=== PATIENT | female | born 1980 | race Caucasian/White ===

== ENCOUNTER 2016-07-27 08:18 | Emergency (ER) | payer SELFPAY ==
[~2016-07-27] VITALS: Ht 165.1 cm; Wt 61.2 kg
[~2016-07-27 08:18] MED LIST: AC325T PO
[2016-07-27] MEDS ORDERED: NS IV 1000 ML 1,000 ML IV ONE (08:24)
[2016-07-27] MEDS ORDERED: ONDANSETRON 4 MG/2 ML (SDV) Z0FRAN IVP ONE (08:30)
[2016-07-27 08:37] LABS: BASOPHILS # (AUTO) 0.1 10^3/uL (0.0-0.1); BASOPHILS % (AUTO) 1 % (0-10); EOSINOPHILS # (AUTO) 0.1 10^3/uL (0.0-0.3); EOSINOPHILS % (AUTO) 1 % (0-10); LYMPHOCYTES # (AUTO) 2.5 X 10^3 (1.0-4.0); LYMPHOCYTES % (AUTO) 31 % (12-44); MEAN CORPUSCULAR HEMOGLOBIN 30 PG (25-34); MEAN CORPUSCULAR HGB CONC 34 G/DL (32-36); MEAN CORPUSCULAR VOLUME 88 FL (80-99); MEAN PLATELET VOLUME 9.5 FL (7.4-10.4); MONOCYTES # (AUTO) 1.2 X 10^3 (0.0-1.0); MONOCYTES % (AUTO) 15 % (0-12); NEUTROPHILS # (AUTO) 4.3 X 10^3 (1.8-7.8); NEUTROPHILS % (AUTO) 53 % (42-75); PLATELET COUNT 299 10^3/uL (130-400); RED BLOOD COUNT 4.89 10^6/uL (4.35-5.85); RED CELL DISTRIBUTION WIDTH 12.3 % (10.0-14.5); WHITE BLOOD COUNT 8.1 10^3/uL (4.3-11.0)
[2016-07-27 08:38] LABS: BILIRUBIN,URINE NEGATIVE (NEGATIVE); KETONES,URINE 1+ (NEGATIVE); LEUKOCYTE ESTERASE ,URINE 1+ (NEGATIVE); NITRITE,URINE NEGATIVE (NEGATIVE); PH,URINE 5 (5-9); PROTEIN,URINE 2+ (NEGATIVE); UROBILINOGEN,URINE NORMAL (NORMAL)
[2016-07-27 08:50] LABS: WBC,URINE 0-2 /HPF
--- NOTE | 2016-07-27 08:56 | Diagnostic Imaging Report ---
INDICATION: Patient is uncooperative and does not verbalize. FINDINGS: Frontal view of the chest demonstrate the lungs to be clear. The heart, mediastinum, pulmonary vascularity and visualized bony thorax are normal. IMPRESSION: Normal chest. Dictated by: Dictated on workstation # [id number]
[2016-07-27 08:58] LABS: ALANINE AMINOTRANSFERASE 18 U/L (0-55); ALBUMIN 4.6 G/DL (3.2-4.5); ANION GAP 11 MMOL/L (5-14); ASPARTATE AMINO TRANSFERASE 20 U/L (5-34); BILIRUBIN,TOTAL 0.5 MG/DL (0.1-1.0); BLOOD UREA NITROGEN 13 MG/DL (7-18); BUN/CREATININE RATIO 15 (0-20); CARBON DIOXIDE 22 MMOL/L (21-32); CHLORIDE 105 MMOL/L (98-107); CREATININE SERUM 0.87 MG/DL (0.60-1.30); GFR ESTIMATED > 60; GLUCOSE 97 MG/DL (70-105); MAGNESIUM 2.1 MG/DL (1.8-2.4); POTASSIUM 3.6 MMOL/L (3.6-5.0); SALICYLATE < 5.0 MG/DL (5.0-20.0); SODIUM 138 MMOL/L (135-145); TOTAL PROTEIN 7.2 G/DL (6.4-8.2)
[2016-07-27 09:01] LABS: ACETAMINOPHEN < 10 UG/ML (10-30); ALCOHOL < 10 MG/DL (<10)
--- NOTE | 2016-07-27 09:14 | ED Neurological Problem ---
General Chief Complaint: Altered Mental Status Stated Complaint: PYSCH Source: patient, EMS, old records Exam Limitations: intoxication (unknown substances) History of Present Illness Time seen by provider: 08:19 Initial Comments This Omaira Antonio patient presents to the emergency room via EMS. [place] up near [place]. Bystanders were concerned that she may get hit by a car. She would not reveal her name to police or EMS. She was hallucinating and believed that there were snakes all over the ground. She was talking to her bottle of soda. In route, she became less responsive and had some gasping breaths and intermittent decreased responsiveness. She stopped talking for EMS. Vital signs remained stable and airway remained patent. She will not provide any information to ER staff upon arrival. Allergies and Home Medications Allergies Coded Allergies: NKANo Known Allergies (Unverified Allergy, Mild, 07/22/08) Home Medications No Active Prescriptions or Reported Meds Constitutional: see HPI Eyes: No Symptoms Reported Ears, Nose, Mouth, Throat: no symptoms reported Respiratory: see HPI Cardiovascular: other (tachycardia) Gastrointestinal: no symptoms reported Genitourinary: no symptoms reported : No Musculoskeletal: no symptoms reported Skin: no symptoms reported Psychiatric/Neurological: See HPI Endocrine: No Symptoms Reported Hematologic/Lymphatic: No Symptoms Reported Past Mtpsraa-Etbscb-Hvbxhs Hx Patient Social History Recreational Drug Use: Yes (methamphetamines, marijuana, ecstasy) Smoking Status: Current Everyday Smoker Surgeries HX Surgeries: Yes Surgeries: Orthopedic (benign tumor removed from left foot), Tubal Ligation Respiratory Hx Respiratory Disorders: No Cardiovascular Hx Cardiac Disorders: No Neurological Hx Neurological Disorders: No Reproductive System : No Sexually Transmitted Disease: Yes (Trichomonas) Genitourinary Hx Genitourinary Disorders: No Gastrointestinal Hx Gastrointestinal Disorders: No Musculoskeletal Hx Musculoskeletal Disorders: No Endocrine Hx Endocrine Disorders: No HEENT HX ENT Disorders: No Cancer Hx Cancer: No Psychosocial Hx Psychiatric Problems: Yes (polysubstance abuse) Family Medical History Significant Family History: Heart Disease Physical Exam Vital Signs Vital Sign - Last 12Hours 07/27/16 08:18 Pulse 104 Resp 18 B/P (MAP) 140/106 Pulse Ox 100 O2 Delivery Room Air Capillary Refill : General Appearance: WD/WN, mild distress HEENT: PERRL/EOMI, normal ENT inspection, pharynx normal Neck: normal inspection Respiratory: lungs clear, normal breath sounds, no respiratory distress, no accessory muscle use, other (positive and her breathing followed by gasps) Cardiovascular: no edema, no murmur, tachycardia (regular) Gastrointestinal: normal bowel sounds, non tender, soft Extremities: normal inspection, no pedal edema Neurologic/Psychiatric: transit man II-XII nml as tested, normal mood/affect, other ( patient is globally weak with decreased responsiveness. She does follow some commands. Level of alertness and functionality improving with time.) Crainal Nerves: abnormal speech Coordination/Gait: normal gait (prior to discharge) Skin: normal color, warm/dry Progress/Results/Core Measures Results/Orders Lab Results Laboratory Tests Test 07/27/16 08:29 07/27/16 08:33 Range/Units White Blood Count 8.1 4.3-11.0 10^3/uL Red Blood Count 4.89 4.35-5.85 10^6/uL Hemoglobin 14.6 11.5-16.0 G/DL Hematocrit 43 35-52 % Mean Corpuscular Volume 88 80-99 FL Mean Corpuscular Hemoglobin 30 25-34 PG Mean Corpuscular Hemoglobin Concent 34 32-36 G/DL Red Cell Distribution Width 12.3 10.0-14.5 % Platelet Count 299 130-400 10^3/uL Mean Platelet Volume 9.5 7.4-10.4 FL Neutrophils (%) (Auto) 53 42-75 % Lymphocytes (%) (Auto) 31 12-44 % Monocytes (%) (Auto) 15 H 0-12 % Eosinophils (%) (Auto) 1 0-10 % Basophils (%) (Auto) 1 0-10 % Neutrophils # (Auto) 4.3 1.8-7.8 X 10^3 Lymphocytes # (Auto) 2.5 1.0-4.0 X 10^3 Monocytes # (Auto) 1.2 H 0.0-1.0 X 10^3 Eosinophils # (Auto) 0.1 0.0-0.3 10^3/uL Basophils # (Auto) 0.1 0.0-0.1 10^3/uL Urine Color YELLOW Urine Clarity SLIGHTLY CLOUDY Urine pH 5 5-9 Urine Specific [place] 1.025 H 1.016-1.022 Urine Protein 2+ H NEGATIVE Urine Glucose (UA) NEGATIVE NEGATIVE Urine Ketones 1+ H NEGATIVE Urine Nitrite NEGATIVE NEGATIVE Urine Bilirubin NEGATIVE NEGATIVE Urine Urobilinogen NORMAL NORMAL MG/DL Urine Leukocyte Esterase 1+ H NEGATIVE Urine RBC (Auto) NEGATIVE NEGATIVE Urine RBC NONE /HPF Urine WBC 0-2 /HPF Urine Squamous Epithelial Cells 5-10 /HPF Urine Crystals NONE /LPF Urine Bacteria NEGATIVE /HPF Urine Casts NONE /LPF Urine Mucus SMALL H /LPF Urine Culture Indicated NO Sodium Level 138 135-145 MMOL/L Potassium Level 3.6 3.6-5.0 MMOL/L Chloride Level 105 98-107 MMOL/L Carbon Dioxide Level 22 21-32 MMOL/L Anion Gap 11 5-14 MMOL/L Blood Urea Nitrogen 13 7-18 MG/DL Creatinine 0.87 0.60-1.30 MG/DL Estimat Glomerular Filtration Rate > 60 BUN/Creatinine Ratio 15 0-20 Glucose Level 97 70-105 MG/DL Calcium Level 10.0 8.5-10.1 MG/DL Magnesium Level 2.1 1.8-2.4 MG/DL Total Bilirubin 0.5 0.1-1.0 MG/DL Aspartate Amino Transf (AST/SGOT) 20 5-34 U/L Alanine Aminotransferase (ALT/SGPT) 18 0-55 U/L Alkaline Phosphatase 64 40-136 U/L Total Protein 7.2 6.4-8.2 G/DL Albumin 4.6 H 3.2-4.5 G/DL TSH [place] Testing 1.11 0.35-4.94 UIU/ML Serum Test, Qualitative NEGATIVE NEGATIVE Salicylates Level < 5.0 L 5.0-20.0 MG/DL Urine Opiates Screen NEGATIVE NEGATIVE Urine Oxycodone Screen NEGATIVE NEGATIVE Urine Methadone Screen NEGATIVE NEGATIVE Urine Propoxyphene Screen NEGATIVE NEGATIVE Acetaminophen Level < 10 L 10-30 UG/ML Urine Barbiturates Screen NEGATIVE NEGATIVE Ur Tricyclic Antidepressants Screen NEGATIVE NEGATIVE Urine Phencyclidine Screen NEGATIVE NEGATIVE Urine Amphetamines Screen POSITIVE H NEGATIVE Urine Methamphetamines Screen POSITIVE H NEGATIVE Urine Benzodiazepines Screen POSITIVE H NEGATIVE Urine Cocaine Screen NEGATIVE NEGATIVE Urine Cannabinoids Screen POSITIVE H NEGATIVE Serum Alcohol < 10 <10 MG/DL Glucometer 95 70-110 MG/DL My Orders Orders - BALWINDER MADDOX MD Acetaminophen (07/27/16 08:24) Alcohol (07/27/16 08:24) Cbc With Automated Diff (07/27/16 08:24) Comprehensive Metabolic Panel (07/27/16 08:24) Drug Screen Stat (Urine) (07/27/16 08:24) Hcg,Qualitative Serum (07/27/16 08:24) Magnesium (07/27/16 08:24) Salicylate (07/27/16 08:24) Thyroid Analyzer (07/27/16 08:24) Ua Culture If Indicated (07/27/16 08:24) Chest 1 View, Ap/Pa Only (07/27/16 08:24) Saline Lock/Iv-Start (07/27/16 08:24) Ns Iv 1000 Ml (Sodium Chloride 0.9%) (07/27/16 08:24) Ondansetron Injection (Zofran Injectio (07/27/16 08:30) Accucheck Stat ONCE (07/27/16 08:31) Ekg Tracing (07/27/16 08:31) Monitor-Rhythm Ecg Trace Only (07/27/16 08:31) Medications Given in ED Current Medications Medications Dose Ordered Sig/Julissa Route Start Time Stop Time Status Last Admin Dose Admin Ondansetron HCl 4 mg ONCE ONCE IVP 07/27/16 08:30 07/27/16 08:31 DC 07/27/16 08:31 4 MG Sodium Chloride 1,000 ml @ 0 mls/hr Q0M ONCE IV 07/27/16 08:24 07/27/16 08:27 DC 07/27/16 08:31 1,000 MLS/HR Vital Signs/I&O Vital Sign - Last 12Hours 07/27/16 08:18 Pulse 104 Resp 18 B/P (MAP) 140/106 Pulse Ox 100 O2 Delivery Room Air Point of Care Testing Finger Stick Blood Glucose: 95 Progress Note #1: Time: 09:09 Progress Note Patient is receiving IV fluids. She is becoming more alert and is now threatening to physically harm staff and removing her monitor stickers. She states "I'm and I'm going to will". She has been lunging at this provider and nursing staff stating "I'm going to hurt this bitch". [place] police have been summoned. Stanley catheter was removed at her demand. She refuses to state her name. She responds to any statement made by staff "that's a lie". She is still not safe for discharge. Labs have been reviewed and are unremarkable except for the toxicology screen. Patient tested positive for marijuana, amphetamines, methamphetamines, and benzodiazepines. Progress Note #2: Time: 09:37 Progress Note Patient's vitals are stable. Mentation has improved. She is able to ambulate safely and independently. She still refuses to answer questions about her name or where she lives. [place] police are now present. Patient was positively identified as Kaylie Dawson. She will be discharged into police custody as soon as they are ready. ECG Initial ECG Impression Date: Jul 27, 2016 Initial ECG Impression Time: 08:37 Initial ECG Rate: 99 Initial ECG Rhythm: Normal Sinus Initial ECG Intervals: Normal Initial ECG Impression: Normal Comment Normal sinus rhythm with no ST elevation or depression. No abnormal intervals or axis deviation. Diagnostic Imaging Diagonstic Imaging: Xray Plain Films/CT/US/NM/MRI: chest Comments NAME: OMAIRA ANTONIO MED REC#: [id number] PT STATUS: REG ER : 1980 PHYSICIAN: BALWINDER MADDOX MD ADMIT DATE: 07/27/16/ER Draft Date of Exam:07/27/16 CHEST 1 VIEW, AP/PA ONLY INDICATION: Patient is uncooperative and does not verbalize. FINDINGS: Frontal view of the chest demonstrate the lungs to be clear. The heart, mediastinum, pulmonary vascularity and visualized bony thorax are normal. IMPRESSION: Normal chest. Dictated on workstation # [id number] Dict: 07/27/16 0854 Trans: 07/27/16 0855 [facility] [id number] Interpreted by: MARCELA AVILES MD Departure Impression Impression: Primary Impression: Altered mental status Qualified Codes: R41.82 - Altered mental status, unspecified Additional Impressions: Hallucinations Polysubstance abuse Threatening to others Sinus tachycardia Disposition: Condition: Improved Departure-Patient Inst. Decision time for Depature: 09:30 Patient Instructions: Drug Abuse Treatment, Methamphetamine Add. Discharge Instructions: You are medically cleared from your ER visit. Seek assistance with substance abuse treatment with either the [facility] clinic or [facility]. Return to care as needed. All discharge instructions reviewed with patient and/or family. Voiced understanding. Scripts No Active Prescriptions or Reported Meds BALWINDER MADDOX MD Jul 27, 2016 09:14
[2016-07-27 09:18] LABS: HEMOLYSIS NN 8 (0); ICTERUS NN 0.4 (0); LIPEMIA NN -1 (0)
[2016-07-27 09:51] VITALS: BP 147/96
== END 2016-07-27 09:51 ==
LOC: ER 08:19 → MERGE 08:19 → EDBD 08:19 → ER 09:51
DX: R41.82 Altered mental status, unspecified (principal); F91.8 Other conduct disorders; R00.0 Tachycardia, unspecified; R44.1 Visual hallucinations; F15.10 Other stimulant abuse, uncomplicated; F12.10 Cannabis abuse, uncomplicated; F16.10 Hallucinogen abuse, uncomplicated; F17.200 Nicotine dependence, unspecified, uncomplicated
CPT/HCPCS: 36415; 71010; 80053; 80306; 80320; 80329; 81000; 82962; 83735; 84443; 84703; 85025; 93005; 93041

== ENCOUNTER 2019-03-09 23:12 | Emergency (ER) | payer SELFPAY ==
[~2019-03-09] VITALS: Ht 157 cm; Wt 62.7 kg
[2019-03-10 01:02] LABS: AMPHETAMINE SCREEN, URINE POSITIVE (NEGATIVE); BARBITURATE SCREEN URINE NEGATIVE (NEGATIVE); BENZODIAZEPINES SCREEN URINE NEGATIVE (NEGATIVE); CANNABINOID SCREEN, URINE POSITIVE (NEGATIVE); COCAINE SCREEN URINE NEGATIVE (NEGATIVE); METHADONE STAT NEGATIVE (NEGATIVE); METHAMPHETAMINE SCREEN URINE S POSITIVE (NEGATIVE); OPIATE SCREEN URINE NEGATIVE (NEGATIVE); OXYCODONE STAT NEGATIVE (NEGATIVE); PROPOXYPHENE STAT NEGATIVE (NEGATIVE); TRICYCLIC ANTIDEPRESSANTS SCRE NEGATIVE (NEGATIVE)
[2019-03-10] MEDS ORDERED: RX-NAPROXEN (NAPROSYN) 250 MG TAB PPK#4 PO STA (01:29)
[2019-03-10] MEDS ORDERED: MELO15TA14 PO (01:35)
--- NOTE | 2019-03-10 01:35 | ED Lower Extremity ---
General Chief Complaint: Lower Extremity Stated Complaint: RT KNEE PAIN Nursing Triage Note: Pt ambulates to rm 6 with c/o "fluid on right knee" x 2wks. Pt states rt knee is swollen, tight, and painful. PT reports taking ibuprofen for the pain. Nursing Sepsis Screen: No Definite Risk Source: patient, other (MALE S.O. IS JOSEPH IGLESIAS, WHO TRIES TO DO ALL TALKING FOR PT ) Allergies and Home Medications Allergies Coded Allergies: NKANo Known Allergies (Unverified Allergy, Mild, 07/22/08) Home Medications No Active Prescriptions or Reported Meds Past Roghxfz-Ypvsvb-Kykwmg Hx Patient Social History Alcohol Use: Rarely Uses Recreational Drug Use: No Smoking Status: Current Everyday Smoker Type Used: Cigarettes 2nd Hand Smoke Exposure: Yes Recent Foreign Travel: No Contact w/Someone Who Travel: No Recent Infectious Disease Expo: No Recent Hopitalizations: No Physical Abuse: No Sexual Abuse: No Mistreated: No Fear: No Seasonal Allergies Seasonal Allergies: No Past Medical History Surgeries: Yes Orthopedic, Tubal Ligation Respiratory: No (UNKNOWN) Cardiac: No Neurological: No Sexually Transmitted Disease: Yes (Trichomonas) Gastrointestinal: No Musculoskeletal: No Endocrine: No Cancer: No Psychosocial: No Family Medical History Heart Disease Physical Exam Vital Signs Vital Signs - First Documented 03/10/19 00:29 Temp 36.8 Pulse 84 Resp 20 B/P (MAP) 130/94 (106) Pulse Ox 100 O2 Delivery Room Air Capillary Refill : Less Than 3 Seconds Height, Weight, BMI Height: 5'2" Weight: 120lbs. oz. 54.380527nc; 25.00 BMI Method:Stated Progress/Results/Core Measures Results/Orders Lab Results Laboratory Tests Test 03/10/19 00:40 Range/Units Urine Opiates Screen NEGATIVE NEGATIVE Urine Oxycodone Screen NEGATIVE NEGATIVE Urine Methadone Screen NEGATIVE NEGATIVE Urine Propoxyphene Screen NEGATIVE NEGATIVE Urine Barbiturates Screen NEGATIVE NEGATIVE Ur Tricyclic Antidepressants Screen NEGATIVE NEGATIVE Urine Phencyclidine Screen NEGATIVE NEGATIVE Urine Amphetamines Screen POSITIVE H NEGATIVE Urine Methamphetamines Screen POSITIVE H NEGATIVE Urine Benzodiazepines Screen NEGATIVE NEGATIVE Urine Cocaine Screen NEGATIVE NEGATIVE Urine Cannabinoids Screen POSITIVE H NEGATIVE My Orders Orders - JACKIE KOROMA DO Urine Bedside (03/10/19 00:37) Drug Screen Stat (Urine) (03/10/19 00:37) Knee, Right, 4 Views Or > (03/10/19 00:37) Edwin Bandage (03/10/19 01:29) Knee Immobilizer (03/10/19 01:29) Rx-Naproxen (Rx-Naprosyn) (03/10/19 01:29) Vital Signs/I&O 03/10/19 00:29 Temp 36.8 Pulse 84 Resp 20 B/P (MAP) 130/94 (106) Pulse Ox 100 O2 Delivery Room Air Blood Pressure Mean: 106 Departure Impression Primary Impression: Pain and swelling of right knee Disposition: HOME, SELF-CARE Condition: Stable Departure-Patient Inst. Referrals: NO,LOCAL PHYSICIAN (PCP) Primary Care Physician MARIA R PENA MD Patient Instructions: How to Use an Elastic Bandage, Knee Immobilizer (DC), Knee Pain (DC) Add. Discharge Instructions: EDWIN WRAP AND KNEE IMMOBILIZER AT ALL TIMES ICE TO AREA AT 20 MINUTE INTERVALS ELEVATE RIGHT LEG MUCH POSSIBLE FOLLOW UP WITH DR. PENA OR ORTHOPEDIC SURGEON OF CHOICE NEXT WEEK FOR FURTHER CARE All discharge instructions reviewed with patient and/or family. Voiced understanding. Scripts Meloxicam (Mobic) 15 Mg Tablet 15 MG PO DAILY, #10 TAB Prov: JACKIE KOROMA DO 03/10/19 JACKIE KOROMA DO Mar 10, 2019 01:35
[2019-03-10 02:04] VITALS: BP 130/94
--- NOTE | 2019-03-10 07:02 | Diagnostic Imaging Report ---
HISTORY: Right knee pain COMPARISON: None FINDINGS: 4 views of the right knee performed. No acute fracture or dislocation is seen. Alignment appears normal. Joint spaces are preserved. There is no joint effusion. IMPRESSION: 1. No acute osseous abnormality seen in the right knee. Dictated by: Dictated on workstation # [id number]
== END 2019-03-10 02:05 | disposition home or self-care (01) ==
LOC: EDUNIT# 23:12 → ER 23:14
DX: M25.461 Effusion, right knee (principal); M25.561 Pain in right knee; F17.210 Nicotine dependence, cigarettes, uncomplicated; Z98.51 Tubal ligation status; Z82.49 Family history of ischemic heart disease and other diseases of the circulatory system
CPT/HCPCS: 73564; 80306; 84703

== ENCOUNTER 2019-06-19 04:00 | Emergency (ER) | payer SELFPAY ==
[~2019-06-19] VITALS: Ht 157 cm; Wt 62.6 kg
[~2019-06-19 04:00] MED LIST changes: +MELO15TA14 PO
--- NOTE | 2019-06-19 05:13 | ED General ---
General Chief Complaint: General Problems/Pain Stated Complaint: MIGRAINE Nursing Triage Note: Pt ambulates to RM 6 with c/o intermittent migraines x 2 weeks. Pt states she's been taking tylenol and mydol with minimal relief. Nursing Sepsis Screen: No Definite Risk Source of Information: Patient, Old Records History of Present Illness Date Seen by Provider: June 19, 2019 Time Seen by Provider: 05:40 Initial Comments PT ARRIVES VIA POV FROM HOME--HER S.O./JOSEPH IGLESIAS, BROUGHT HER HERE. C/O HEADACHES OFF AND ON FOR 2 WEEKS-MINIMAL RELIEF WITH TYLENOL AND MIDOL/LUBA PRIN--TOOK ONE OF EACH YESTERDAY AFTERNOON. NO VISION CHANGES NO PHOTOPHOBIA NO NAUSEA/VOMITING NO DIZZINESS NO PARESTHESIAS OR MOTOR DEFICITS SYMPTOMS NO DIFFERENT TONIGHT HAS NOT SOUGHT CARE UNTIL TONIGHT. LAST USED DRUGS TODAY--""CBD OIL OR K2 OR MARIJUANA" PER PT PCP: BASIL Allergies and Home Medications Allergies Coded Allergies: NKANo Known Allergies (Verified Allergy, Mild, 06/19/19) Home Medications Meloxicam 15 Mg Tablet, 15 MG PO DAILY Prescribed by: JACKIE KOROMA on 03/10/19 0135 Patient Home Medication List Home Medication List Reviewed: Yes Review of Systems Review of Systems Constitutional: no symptoms reported EENTM: no symptoms reported Respiratory: no symptoms reported Cardiovascular: no symptoms reported Gastrointestinal: no symptoms reported Genitourinary: no symptoms reported Musculoskeletal: no symptoms reported Skin: no symptoms reported Psychiatric/Neurological: See HPI Hematologic/Lymphatic: No Symptoms Reported Immunological/Allergic: no symptoms reported Past Mdtgtyq-Jeohtd-Lzbfwg Hx Past Med/Social Hx: Reviewed and Corrections made Patient Social History Alcohol Use: Rarely Uses Recreational Drug Use: Yes (EXTENSIVE HX OF DRUG ABUSE, INCLUDING IV DRUGS- METH,AMPHET,MDMA,BZO,THC,K2) Drug of Choice: EXTENSIVE HX OF IV DRUGS INCLUDING METH,AMPHET,MDMA/ECSTASY,BZO,THC,K2 Smoking Status: Current Everyday Smoker (1 PPD) Type Used: Cigarettes (1 PPD) 2nd Hand Smoke Exposure: Yes Recent Foreign Travel: No Contact w/Someone Who Travel: No Recent Infectious Disease Expo: No Recent Hopitalizations: No Physical Abuse: No Sexual Abuse: No Mistreated: No Fear: No Seasonal Allergies Seasonal Allergies: No Past Medical History Surgeries: Yes Orthopedic, Tubal Ligation Respiratory: No Cardiac: No Neurological: Yes 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 oz. 54.539842pn; 25.00 BMI Method:Stated General Appearance: No Apparent Distress, WD/WN, Other (UNKMEPT, DOES NOT APPEAR TO BE ILL OR IN ANY DISCOMFORT OR DISTRESS WHATSOEVER. REEKS OF CIGARETTES. TALKING ON PHONE THROUGHOUT ENTIRE ER STAY--REFUSES TO GET OFF PHONE) HEENT: PERRL/EOMI, TMs Normal, Pharynx Normal; No Photophobia Neck: Full Range of Motion, Normal Inspection, Non Tender, Supple Respiratory: Normal Breath Sounds, No Accessory Muscle Use Cardiovascular: No Edema, No JVD, No Murmur, Normal Peripheral Pulses, Tachycardia (100-110'S) Gastrointestinal: Soft Back: No CVA Tenderness Extremity: Normal Range of Motion, No Pedal Edema Neurologic/Psychiatric: Alert, Oriented x3, No Motor/Sensory Deficits, corner cutter II- XII Norm as Tested Skin: Normal Color, Warm/Dry Progress/Results/Core Measures Suspected Sepsis Recent Fever Within 48 Hours: No Infection Criteria Present: None New/Unexplained Altered Menta: No Sepsis Screen: No Definite Risk SIRS Temperature: Pulse: 117 Respiratory Rate: 20 Blood Pressure 156 /96 Mean: 116 Results/Orders Lab Results Laboratory Tests Test 06/19/19 04:53 Range/Units Urine Color YELLOW Urine Clarity CLEAR Urine pH 5.5 5-9 Urine Specific [place] >=1.030 1.016-1.022 Urine Protein NEGATIVE NEGATIVE Urine Glucose (UA) NEGATIVE NEGATIVE Urine Ketones NEGATIVE NEGATIVE Urine Nitrite NEGATIVE NEGATIVE Urine Bilirubin NEGATIVE NEGATIVE Urine Urobilinogen 0.2 < = 1.0 MG/DL Urine Leukocyte Esterase NEGATIVE NEGATIVE Urine RBC (Auto) 2+ H NEGATIVE Urine RBC 2-5 H /HPF Urine WBC NONE /HPF Urine Squamous Epithelial Cells 5-10 /HPF Urine Crystals NONE /LPF Urine Bacteria NEGATIVE /HPF Urine Casts NONE /LPF Urine Mucus LARGE H /LPF Urine Culture Indicated NO Urine Opiates Screen NEGATIVE NEGATIVE Urine Oxycodone Screen NEGATIVE NEGATIVE Urine Methadone Screen NEGATIVE NEGATIVE Urine Propoxyphene Screen NEGATIVE NEGATIVE Urine Barbiturates Screen NEGATIVE NEGATIVE Ur Tricyclic Antidepressants Screen NEGATIVE NEGATIVE Urine Phencyclidine Screen NEGATIVE NEGATIVE Urine Amphetamines Screen POSITIVE H NEGATIVE Urine Methamphetamines Screen POSITIVE H NEGATIVE Urine Benzodiazepines Screen POSITIVE H NEGATIVE Urine Cocaine Screen NEGATIVE NEGATIVE Urine Cannabinoids Screen POSITIVE H NEGATIVE My Orders Orders - JACKIE KOROMA DO Urine Bedside (06/19/19 04:49) Drug Screen Stat (Urine) (06/19/19 04:49) Ua Culture If Indicated (06/19/19 04:49) Vital Signs/I&O 06/19/19 04:13 Temp 36.9 Pulse 117 Resp 20 B/P (MAP) 156/96 (116) O2 Delivery Room Air Capillary Refill : Less Than 3 Seconds Blood Pressure Mean: 116 Progress Note : Progress Note 0420--ATTEMPTED TO INTERVIEW AND EXAMINE PT--SHE REFUSES TO GET OFF HER PHONE/TALKING ON PHONE, AFTER ASKING HER TO PUT HER PHONE AWAY 0445--PT STILL ON PHONE AND REFUSES TO GET OFF PHONE 0505--PT CONTINUES TO REFUSE TO GET OFF THE PHONE. 0540--PT HAS RIPPED OFF ALL MONITOR LEADS, AND IS WANTING TO LEAVE ( STILL TALKING ON PHONE ) --STATING THAT SHE IS "TIRED OF WAITING" EXPLAINED TO PT THAT ALL OF HER SYMPTOMS COULD BE ATTRIBUTED TO HER DRUG USE AND ADVISED HER OF RISKS OF CONTINUED USE AND ADVISED HER TO STOP Departure Impression Primary Impression: Polysubstance abuse Additional Impression: Illicit drug use Disposition: HOME, SELF-CARE Condition: Stable Departure-Patient Inst. Referrals: [facility] (PCP/Family) Primary Care Physician Patient Instructions: Drug Abuse Treatment, Drug Abuse and Drug Addiction (DC), Methamphetamine, Polysubstance Abuse (DC) Add. Discharge Instructions: STOP USING DRUGS!!!! TYLENOL 1 GRAM / MOTRIN 600 MG 4 TIMES A DAY FOR PAIN LOTS OF CLEAR LIQUIDS--WATER, BROTH, JELLO, GATORADE FOLLOW UP WITH [facility] THIS WEEK FOR FURTHER CARE All discharge instructions reviewed with patient and/or family. Voiced understanding. JACKIE KOROMA DO June 19, 2019 05:13
[2019-06-19 05:16] LABS: BILIRUBIN,URINE NEGATIVE (NEGATIVE); CLARITY,URINE CLEAR; COLOR,URINE YELLOW; GLUCOSE, URINE (UA) NEGATIVE (NEGATIVE); KETONES,URINE NEGATIVE (NEGATIVE); LEUKOCYTE ESTERASE ,URINE NEGATIVE (NEGATIVE); NITRITE,URINE NEGATIVE (NEGATIVE); PH,URINE 5.5 (5-9); PROTEIN,URINE NEGATIVE (NEGATIVE)
[2019-06-19 05:26] LABS: AMPHETAMINE SCREEN, URINE POSITIVE (NEGATIVE); BARBITURATE SCREEN URINE NEGATIVE (NEGATIVE); BENZODIAZEPINES SCREEN URINE POSITIVE (NEGATIVE); CANNABINOID SCREEN, URINE POSITIVE (NEGATIVE); COCAINE SCREEN URINE NEGATIVE (NEGATIVE); METHADONE STAT NEGATIVE (NEGATIVE); METHAMPHETAMINE SCREEN URINE S POSITIVE (NEGATIVE); OPIATE SCREEN URINE NEGATIVE (NEGATIVE); OXYCODONE STAT NEGATIVE (NEGATIVE); PROPOXYPHENE STAT NEGATIVE (NEGATIVE); TRICYCLIC ANTIDEPRESSANTS SCRE NEGATIVE (NEGATIVE)
[2019-06-19 05:27] LABS: BACTERIA,URINE NEGATIVE /HPF
[2019-06-19] MEDS ORDERED: KETOROLAC 60 MG/2 ML VIAL IM STA (05:44)
[2019-06-19] MEDS ORDERED: diphenhydrAMINE 50 MG/ML INJ (BENADRYL) IM ONE (05:45)
[2019-06-19 06:10] VITALS: BP 140/103
== END 2019-06-19 06:11 | disposition home or self-care (01) ==
LOC: EDUNIT# 04:00 → ER 04:04
DX: F12.10 Cannabis abuse, uncomplicated (principal); F15.10 Other stimulant abuse, uncomplicated; F13.10 Sedative, hypnotic or anxiolytic abuse, uncomplicated; F16.10 Hallucinogen abuse, uncomplicated; F17.210 Nicotine dependence, cigarettes, uncomplicated; Z82.49 Family history of ischemic heart disease and other diseases of the circulatory system
CPT/HCPCS: 80306; 81000; 84703; 99284

== ENCOUNTER 2019-07-15 04:38 | Emergency (ER) | payer SELFPAY ==
[~2019-07-15] VITALS: Ht 157.4 cm; Wt 63.5 kg
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
--- OUTSIDE RECORDS SUMMARY | 2019-07-15 04:45 | XMS REPORT ---
Author Author Anali GOFF Organization [employer] Address Unknown Phone Unavailable Care Team Providers Care Building Performance Specialist Name Role Phone MEG GOFF CP Unavailable Allergies No Known Allergies Problems Problem Type Condition Code Onset Dates Condition Statu s Problem Unspecified psychosis F29 Active Problem Hallucinations R44.3 Active Problem Unspecified episodic mood disorder F39 Active Problem Drug abuse and dependence F19.20 Ac tive Medications Medication Code System Code Instructions Start Date End Date Status Dosage Metronidazole [facility] [address]-30 500 MG Orally Twice a day Jan 14, 2015 Jan 21, 2015 1 tablet Results No Known Results Summary Purpose [employer] Submission
--- OUTSIDE RECORDS SUMMARY | 2019-07-15 04:45 | XMS REPORT ---
Author Author Anali HUERTAS Organization [facility] Address [address] [place] [address] Care Team Providers Care Edge Inker Heels Name Role Phone KATELYN HUERTAS Unavailable PROBLEMS Type Condition ICD9-CM Code SXM40-XH Code Onset Dates Condition S tatus SNOMED Code Problem Mood disorder F39 Active 206081 05 Problem Unspecified psychosis F29 Active 59103635 Problem Drug abuse and dependence F19.20 Acti ve 2254476 Problem Unspecified episodic mood disorder F39 Active 49405228 Problem Hallucinations R44.3 Active 25662 01 ALLERGIES Unknown Allergies SOCIAL HISTORY No smoking Hx information available PLAN OF CARE Activity Details Follow Up 1 Week Reason:Depression, an xiety VITAL SIGNS MEDICATIONS Unknown Medications RESULTS No Results PROCEDURES Procedure Date Ordered Related Diagnosis Body Site Psych diagnostic evaluation, new patient Feb 18, 2016 IMMUNIZATIONS No Known Immunizations
--- OUTSIDE RECORDS SUMMARY | 2019-07-15 04:45 | XMS REPORT | Continuity of Care Document ---
Author Organization Unknown Address Unknown Phone Unavailable Allergies Active Description Code Type Severity Reaction Onset Reported/Identified Relationship to Patient Clinical Status Yes ALLERGIES UNKNOWN DUE TO PATIENT INCAPAC ITATION UNKNOWN ALLERGIES UNKNOWN DU Yes NO KNOWN DRUG ALLERGIES UNKNOWN NO KNOWN DRUG ALLERG Yes No Known Drug Allergies [id number] Drug Allergy Unknown N/A 07/27/2016 Yes NKANo Known Allergies NKA Miscellaneous Allergy Mild N/A 06/19/2019 Medications Medication Packaging Start Date St op Date Route Dosage Sig CEFTRIAXONE INJ 1 GM (ROCEPHIN) GM 04/27/2017 04/27/2017 ONCE&1332 LACTATED RINGERS 1000CC IV BAG INJ ml 04/27/2017 04/27/2017 ONCE&1357 TETANUS,DIPTH,PERT ADULT INJ 0 (ADACEL SYRINGE) ml 04/27/2017 04/27/2017 ONCE&1435 Problems Date Dx Coded Attending Type Code Diagnosis Diagnosed By 04/03/2010 Ot 305.20 04/03/2010 Ot 401.9 04/03/2010 Ot 781.0 04/03/2010 Ot 784.59 08/12/2010 Ot 616.10 08/12/2010 Ot 789.04 09/05/2014 BALWINDER MADDOX MD Ot 131.09 UROGENITAL TRICHOMON NEC 09/05/2014 BALWINDER MADDOX MD Ot 276.8 HYPOPOTASSEMIA 09/05/2014 BALWINDER MADDOX MD Ot 305.20 CANNABIS ABUSE-UNSPEC 09/05/2014 BALWINDER MADDOX MD Ot 305.70 AMPHETAMINE ABUSE-UNSPEC 09/05/2014 BALWINDER MADDOX MD Ot 780.97 ALTERED MENTAL STATUS 07/27/2016 BALWINDER MADDOX MD Ot F12.10 CANNABIS ABUSE, UNCOMPLICATED 07/27/2016 BALWINDER MADDOX MD Ot F15.10 OTHER STIMULANT ABUSE, UNCOMPLICATED 07/27/2016 BRUEGGEMANN MD, BALWINDER T Ot F16.10 HALLUCINOGEN ABUSE, UNCOMPLICATED 07/27/2016 TAN WICK, BALWINDER T Ot F17.200 NICOTINE DEPENDENCE, UNSPECIFIED, UNCOMP 07/27/2016 TAN WICK, BALWINDER T Ot F91.8 OTHER CONDUCT DISORDERS 07/27/2016 TAN WICK, BALWINDER T Ot R00.0 TACHYCARDIA, UNSPECIFIED 07/27/2016 TAN WICK, BALWINDER T Ot R41.82 ALTERED MENTAL STATUS, UNSPECIFIED 07/27/2016 TAN WICK, BALWINDER T Ot R44.1 VISUAL HALLUCINATIONS 07/27/2016 TAN WICK, BALWINDER T Ot R46.4 SLOWNESS AND POOR RESPONSIVENESS 07/29/2016 TAN WICK, BALWINDER T Ot F12.10 CANNABIS ABUSE, UNCOMPLICATED 07/29/2016 TAN WICK, BALWINDER T Ot F15.10 OTHER STIMULANT ABUSE, UNCOMPLICATED 07/29/2016 TAN WICK, BALWINDER T Ot F16.10 HALLUCINOGEN ABUSE, UNCOMPLICATED 07/29/2016 TAN WICK, BALWINDER T Ot F17.200 NICOTINE DEPENDENCE, UNSPECIFIED, UNCOMP 07/29/2016 TAN WICK, BALWINDER T Ot F91.8 OTHER CONDUCT DISORDERS 07/29/2016 TAN WICK, BALWINDER T Ot R00.0 TACHYCARDIA, UNSPECIFIED 07/29/2016 TAN WICK, BALWINDER T Ot R41.82 ALTERED MENTAL STATUS, UNSPECIFIED 07/29/2016 TAN WICK, BALWINDER T Ot R44.1 VISUAL HALLUCINATIONS 07/29/2016 TAN WICK, BALWINDER T Ot R46.4 SLOWNESS AND POOR RESPONSIVENESS 07/31/2016 TAN WICK, BALWNIDER T Ot F12.10 CANNABIS ABUSE, UNCOMPLICATED 07/31/2016 TAN WICK, BALWINDER T Ot F15.10 OTHER STIMULANT ABUSE, UNCOMPLICATED 07/31/2016 TAN WICK, BALWINDER T Ot F16.10 HALLUCINOGEN ABUSE, UNCOMPLICATED 07/31/2016 TAN WICK, BALWINDER T Ot F17.200 NICOTINE DEPENDENCE, UNSPECIFIED, UNCOMP 07/31/2016 TAN WICK, BALWINDER T Ot F91.8 OTHER CONDUCT DISORDERS 07/31/2016 TAN WICK, BALWINDER T Ot R00.0 TACHYCARDIA, UNSPECIFIED 07/31/2016 TAN WICK, BALWINDER T Ot R41.82 ALTERED MENTAL STATUS, UNSPECIFIED 07/31/2016 BALWINDER MADDOX MD T Ot R44.1 VISUAL HALLUCINATIONS 07/31/2016 BALWINDER MADDOX MD Ot R46.4 SLOWNESS AND POOR RESPONSIVENESS 08/02/2016 BALWINDER MADDOX MD T Ot F12.10 CANNABIS ABUSE, UNCOMPLICATED 08/02/2016 TAN WICK, BALWINDER T Ot F15.10 OTHER STIMULANT ABUSE, UNCOMPLICATED 08/02/2016 TAN WICK, BALWINDER T Ot F16.10 HALLUCINOGEN ABUSE, UNCOMPLICATED 08/02/2016 TAN WICK, BALWINDER T Ot F17.200 NICOTINE DEPENDENCE, UNSPECIFIED, UNCOMP 08/02/2016 BALWINDER MADDOX MD Ot F91.8 OTHER CONDUCT DISORDERS 08/02/2016 BALWINDER MADDOX MD T Ot R00.0 TACHYCARDIA, UNSPECIFIED 08/02/2016 BALWINDER MADDOX MD T Ot R41.82 ALTERED MENTAL STATUS, UNSPECIFIED 08/02/2016 BALWINDER MADDOX MD T Ot R44.1 VISUAL HALLUCINATIONS 08/02/2016 BALWINDER MADDOX MD T Ot R46.4 SLOWNESS AND POOR RESPONSIVENESS 04/27/2017 BALWINDER SANCHEZ 292.89 OTHER SPECIFIED DRUG-INDUCED MENTAL DISORDERS 04/27/2017 BALWINDER SANCHEZ 682.3 CELLULITIS AND ABSCESS OF UPPER ARM AND FOREARM 04/27/2017 BALWINDER SANCHEZ F15.188 OTHER STIMULANT ABUSE WITH OTHER STIMULANT-INDUCED DISORDER 04/27/2017 BALWINDER SANCHEZ W L02.414 CUTANEOUS ABSCESS OF LEFT UPPER LIMB 03/10/2019 JACKEI KOROMA DO Ot F17.210 NICOTINE DEPENDENCE, CIGARETTES, UNCOMPL 03/10/2019 JACKIE KOROMA DO Ot M25.461 EFFUSION, RIGHT KNEE 03/10/2019 JACKIE KOROMA DO Ot M25.561 PAIN IN RIGHT KNEE 03/10/2019 JACKIE KOROMA DO Ot Z82.49 FAMILY HX OF ISCHEM HEART DIS AND OTH DI 03/10/2019 GA DO, JACKIE K Ot Z98.51 TUBAL LIGATION STATUS 03/12/2019 GA DO, JACKIE K Ot F17.210 NICOTINE DEPENDENCE, CIGARETTES, UNCOMPL 03/12/2019 GA DO, JACKIE K Ot M25.461 EFFUSION, RIGHT KNEE 03/12/2019 GA DO, JACKIE K Ot M25.561 PAIN IN RIGHT KNEE 03/12/2019 GA DO, JACKIE K Ot Z82.49 FAMILY HX OF ISCHEM HEART DIS AND OTH DI 03/12/2019 GA DO, JACKIE K Ot Z98.51 TUBAL LIGATION STATUS 06/21/2019 GA DO, JACKIE K Ot F12.10 CANNABIS ABUSE, UNCOMPLICATED 06/21/2019 GA DO, JACKIE K Ot F13.10 SEDATIVE, HYPNOTIC OR ANXIOLYTIC ABUSE, 06/21/2019 GA DO, JACKIE K Ot F15.10 OTHER STIMULANT ABUSE, UNCOMPLICATED 06/21/2019 GA DO, JACKIE K Ot F16.10 HALLUCINOGEN ABUSE, UNCOMPLICATED 06/21/2019 GA DO, JACKIE K Ot F17.210 NICOTINE DEPENDENCE, CIGARETTES, UNCOMPL 06/21/2019 GA DO, JACKIE K Ot R51 HEADACHE 06/21/2019 GA DO, JACKIE K Ot Z82.49 FAMILY HX OF ISCHEM HEART DIS AND OTH DI Procedures There is no data. Results Test Result Range Complete blood count (CBC) with automate d white blood cell (WBC) differential - 07/27/16 08:29 Blood leukocytes automated count (number/volume) 8.1 10*3/uL 4.3-11.0 Blood erythrocytes automated count (number/volume) 4.89 10*6/uL 4.35-5.85 Venous blood hemoglobin measurement (mass/volume) 14.6 g/dL 11.5-16.0 Blood hematocrit (volume fraction) 43 % 35-52 Automated erythrocyte mean corpuscular volume 88 [ foz_us] 80-99 Automated erythrocyte mean corpuscular h emoglobin (mass per erythrocyte) 30 pg 25-34 Automated erythrocyte mean corpuscular h emoglobin concentration measurement (mass/volume) 34 g/dL 32-36 Automated erythrocyte distribution width ratio 12. 3 % 10.0- 14.5 Automated blood platelet count (count/volume) 299 10*3/uL 130-400 Automated blood platelet mean volume measurement 9.5 [foz_us] 7.4-10.4 Automated blood neutrophils/100 leukocytes 53 % 42-75 Automated blood lymphocytes/100 leukocytes 31 % 12-44 Blood monocytes/100 leukocytes 15 % 0-12 Automated blood eosinophils/100 leukocytes 1 % 0-10 Automated blood basophils/100 leukocytes 1 % 0-10 Blood neutrophils automated count (number/volume) 4.3 10*3 1.8-7.8 Blood lymphocytes automated count (number/volume) 2.5 10*3 1.0-4.0 Blood monocytes automated count (number/volume) 1. 2 10*3 0.0-1.0 Automated eosinophil count 0.1 10*3/uL 0 .0-0.3 Automated blood basophil count (count/volume) 0.1 10*3/uL 0.0-0.1 Serum or plasma choriogonadotropin (preg jelani test) detection - 07/27/16 08:29 Serum or plasma choriogonadotropin ( test) de tection NEGATIVE NEGATIVE Urine drug screening test - 07/27/16 08: 29 Urine phencyclidine detection by screening method NEGATIVE NEGATIVE Urine benzodiazepines detection by screening method POSITIVE NEGATIVE Urine cocaine detection NEGATIVE NEGATI VE Urine amphetamines detection by screening method P OSITIVE NEGATIVE Urine methamphetamine detection by screening method POSITIVE NEGATIVE Urine cannabinoids detection by screening method P OSITIVE NEGATIVE Urine opiates detection by screening method NEGATI VE NEGATIVE Urine barbiturates detection NEGATIVE N EGATIVE Screening urine tricyclic antidepressants detection NEGATIVE NEGATIVE Urine methadone detection by screening method NEGA TIVE NEGATIVE Urine oxycodone detection NEGATIVE NEGA TIVE Urine propoxyphene detection NEGATIVE N EGATIVE Complete urinalysis with reflex to cultu re - 07/27/16 08:29 Urine color determination YELLOW NRG Urine clarity determination SLIGHTLY CLOUDY NRG Urine pH measurement by test strip 5 5-9 Specific gravity of urine by test strip 1.025 1.016-1.022 Urine protein assay by test strip, semi-quantitative 2+ NEGATIVE Urine glucose detection by automated test strip NE GATIVE NEGATIVE Erythrocytes detection in urine sediment by light micr oscopy NEGATIVE NEGATIVE Urine ketones detection by automated test strip 1+ NEGATIVE Urine nitrite detection by test strip NEGATIVE NEGATIVE Urine total bilirubin detection by test strip NEGA TIVE NEGATIVE Urine urobilinogen measurement by automated test strip (mass/volume) NORMAL NORMAL Urine leukocyte esterase detection by dipstick 1+ NEGATIVE Automated urine sediment erythrocyte cou nt by microscopy (number/high power field) NONE NRG Automated urine sediment leukocyte count by microscopy (number/high power field) [HPF] NRG Bacteria detection in urine sediment by light microsco py NEGATIVE NRG Squamous epithelial cells detection in u rine sediment by light microscopy 5-10 NRG Crystals detection in urine sediment by light microsco py NONE NRG Casts detection in urine sediment by light microscopy NONE NRG Mucus detection in urine sediment by light microscopy SMALL NRG Complete urinalysis with reflex to culture NO NRG Comprehensive metabolic panel - 07/27/16 08:29 Serum or plasma sodium measurement (moles/volume) 138 mmol/L 135-145 Serum or plasma potassium measurement (moles/volume) 3.6 mmol/L 3.6-5.0 Serum or plasma chloride measurement (moles/volume) 105 mmol/L 98-107 Carbon dioxide 22 mmol/L 21-32 Serum or plasma anion gap determination (moles/volume) 11 mmol/L 5-14 Serum or plasma urea nitrogen measurement (mass/volume ) 13 mg/dL 7-18 Serum or plasma creatinine measurement (mass/volume) 0.87 mg/dL 0.60-1.30 Serum or plasma urea nitrogen/creatinine mass ratio 15 0-20 Serum or plasma creatinine measurement w ith calculation of estimated glomerular filtration rate > NRG Serum or plasma glucose measurement (mass/volume) 97 mg/dL 70-105 Serum or plasma calcium measurement (mass/volume) 10.0 mg/dL 8.5-10.1 Serum or plasma total bilirubin measurement (mass/volu me) 0.5 mg/dL 0.1-1.0 Serum or plasma alkaline phosphatase elvia surement (enzymatic activity/volume) 64 U/L 40-136 Serum or plasma aspartate aminotransfera se measurement (enzymatic activity/volume) 20 U/L 5-34 Serum or plasma alanine aminotransferase measurement (enzymatic activity/volume) 18 U/L 0-55 Serum or plasma protein measurement (mass/volume) 7.2 g/dL 6.4-8.2 Serum or plasma albumin measurement (mass/volume) 4.6 g/dL 3.2-4.5 Magnesium - 07/27/16 08:29 Magnesium 2.1 mg/dL 1.8-2.4 Serum or plasma thyrotropin measurement by detection limit <=0.05 miu/l (units/volume) - 07/27/16 08:29 Serum or plasma thyrotropin measurement by detection limit <=0.05 miu/l (units/volume) 1.11 u[iU]/mL 0.35-4.94 Serum or plasma salicylates measurement (mass/volume) - 07/27/16 08:29 Serum or plasma salicylates measurement (mass/volume) < mg/dL 5.0-20.0 Serum or plasma acetaminophen measuremen t (mass/volume) - 07/27/16 08:29 Serum or plasma acetaminophen measurement (mass/volume ) < ug/mL 10-30 Serum or plasma ethanol measurement (mas s/volume) - 07/27/16 08:29 Serum or plasma ethanol measurement (mass/volume) < mg/dL <10 Capillary blood glucose measurement by g lucometer (mass/volume) - 07/27/16 08:33 Capillary blood glucose measurement by glucometer (mas s/volume) 95 mg/dL 70-110 Rapid Drug Screen + ETOH,Medical - 04/27 13:52 Amphetamine POSITIVE NEGATIVE Barbiturates NEGATIVE NEGATIVE Benzodiazepines NEGATIVE NEGATIVE Cocaine NEGATIVE NEGATIVE Ethanol, Urine <10.00 mg/dL 20.00-80.00 Marijuana NEGATIVE NEGATIVE Methylenedioxymethamphetamine NEGATIVE NEGATIVE Opiates NEGATIVE NEGATIVE Oxycodone NEGATIVE NEGATIVE Phencyclidine NEGATIVE NEGATIVE Propoxyphene NEGATIVE NEGATIVE Tricyclic Antidepressant NEGATIVE NEGAT ADRIANNE BMP - 04/27/17 13:52 Anion Gap 23 6-14 BUN 16 mg/dL 5-25 Calcium 9.8 mg/dL 8.3-10.4 Chloride 103 mmol/L 95-114 CO2 18 mEq/L 22-33 Creat 0.75 mg/dL 0.50-1.50 eGFR 87 mL/min/1.73m2 >59 Glucose 91 mg/dL 70-110 Osmo 288 280-295 Potassium 4.5 mmol/L 3.5-5.3 Sodium 139 mmol/L 134-148 Other Culture - 04/27/17 13:57 PRELIM CULTURE RESULTS No Growth 24 hours FINAL CULTURE RESULTS No Growth 48 hours MEDIA PLATED Setup at 14:11 on 04/27/2017 Urine Culture - 04/27/17 14:14 PRELIM CULTURE RESULTS No Growth 24 hours FINAL CULTURE RESULTS 20,000-50,000 Gram Pos itive Mixed Dee Probable Skin Contaminant No Further Workup done CULTURE SOURCE void Urine drug screening test - 03/10/19 00: 40 Urine phencyclidine detection by screening method NEGATIVE NEGATIVE Urine benzodiazepines detection by screening method NEGATIVE NEGATIVE Urine cocaine detection NEGATIVE NEGATI VE Urine amphetamines detection by screening method P OSITIVE NEGATIVE Urine methamphetamine detection by screening method POSITIVE NEGATIVE Urine cannabinoids detection by screening method P OSITIVE NEGATIVE Urine opiates detection by screening method NEGATI VE NEGATIVE Urine barbiturates detection NEGATIVE N EGATIVE Screening urine tricyclic antidepressants detection NEGATIVE NEGATIVE Urine methadone detection by screening method NEGA TIVE NEGATIVE Urine oxycodone detection NEGATIVE NEGA TIVE Urine propoxyphene detection NEGATIVE N EGATIVE Urine drug screening test - 06/19/19 04: 53 Urine phencyclidine detection by screening method NEGATIVE NEGATIVE Urine benzodiazepines detection by screening method POSITIVE NEGATIVE Urine cocaine detection NEGATIVE NEGATI VE Urine amphetamines detection by screening method P OSITIVE NEGATIVE Urine methamphetamine detection by screening method POSITIVE NEGATIVE Urine cannabinoids detection by screening method P OSITIVE NEGATIVE Urine opiates detection by screening method NEGATI VE NEGATIVE Urine barbiturates detection NEGATIVE N EGATIVE Screening urine tricyclic antidepressants detection NEGATIVE NEGATIVE Urine methadone detection by screening method NEGA TIVE NEGATIVE Urine oxycodone detection NEGATIVE NEGA TIVE Urine propoxyphene detection NEGATIVE N EGATIVE Complete urinalysis with reflex to cultu re - 06/19/19 04:53 Urine color determination YELLOW NRG Urine clarity determination CLEAR NR G Urine pH measurement by test strip 5.5 5-9 Specific gravity of urine by test strip >= 1.016-1.022 Urine protein assay by test strip, semi-quantitative NEGATIVE NEGATIVE Urine glucose detection by automated test strip NE GATIVE NEGATIVE Erythrocytes detection in urine sediment by light micr oscopy 2+ NEGATIVE Urine ketones detection by automated test strip NE GATIVE NEGATIVE Urine nitrite detection by test strip NEGATIVE NEGATIVE Urine total bilirubin detection by test strip NEGA TIVE NEGATIVE Urine urobilinogen measurement by automated test strip (mass/volume) 0.2 mg/dL < = 1.0 Urine leukocyte esterase detection by dipstick NEG ATIVE NEGATIVE Automated urine sediment erythrocyte cou nt by microscopy (number/high power field) [HPF] NRG Automated urine sediment leukocyte count by microscopy (number/high power field) NONE NRG Bacteria detection in urine sediment by light microsco py NEGATIVE NRG Squamous epithelial cells detection in u rine sediment by light microscopy 5-10 NRG Crystals detection in urine sediment by light microsco py NONE NRG Casts detection in urine sediment by light microscopy NONE NRG Mucus detection in urine sediment by light microscopy LARGE NRG Complete urinalysis with reflex to culture NO NRG Encounters ACCT No. Visit Date/Time Discharge Status Pt. Type Provider Facility Loc./Unit Complaint [id number] 04/27/2017 13:14:00 04/27/2017 15:10: 00 DIS Outpatient BALWINDER SANCHEZ [id number] 04/27/2017 13:32:42 Document Registration [id number] 07/27/2016 08:19:00 017 23:59:59 CLS Emergency BALWINDER MADDOX MD [facility] PYSCH [id number] 06/19/2019 04:04:00 020 06:11:00 DIS Outpatient JACKIE KOROMA DO, [facility] MIGRAINE [id number] 03/09/2019 23:14:00 020 02:05:00 DIS Emergency JACKIE KOROMA DO [facility] ER RT KNEE PAIN [id number] 07/27/2016 08:19:00 017 09:51:00 DIS Emergency BALWINDER MADDOX MD [facility] PYSCH [id number] 09/05/2014 15:10:00 015 18:10:00 DIS Emergency BALWINDER MADDOX MD [facility] STD TESTING [id number] 09/05/2014 15:10:00 Document Registration [id number] 09/05/2014 15:10:00 Document Registration
--- OUTSIDE RECORDS SUMMARY | 2019-07-15 04:45 | XMS REPORT ---
Author Author Anali GOFF Organization [employer] Address Unknown Phone Unavailable Care Team Providers Care Mohs Surgeon Name Role Phone MEG GOFF CP Unavailable Allergies No Known Allergies Problems Problem Type Condition Code Onset Dates Condition Statu s Problem Unspecified psychosis F29 Active Problem Hallucinations R44.3 Active Problem Unspecified episodic mood disorder F39 Active Problem Drug abuse and dependence F19.20 Ac tive Assessment Mood disorder F39 Active Medications Medication Code System Code Instructions Start Date End Date Status Dosage Trazodone HCl [facility] [id number] 50 MG Orally Once a day Feb 04, 2015 1 tablet at bedtime as needed Procedures Procedure Coding System Code Date Office Visit, Est Pt., Level 2 CPT-4 30610 D 2014 Vital Signs Date/Time: Feb 04, 2015 Cardiac Monitoring Heart Rate 76 bpm Weight 158 lbs Height 5.2 in BMI 4,107.77 Index Blood Pressure Diastolic 76 mmHg Blood Pressure Systolic 100 mmHg Results No Known Results Summary Purpose [employer] Submission
--- OUTSIDE RECORDS SUMMARY | 2019-07-15 04:45 | XMS REPORT ---
Author Author Anali GOFF Organization [facility] [place] Address [address] [place] [address] Care Team Providers Care Stock Raiser Name Role Phone MEG GOFF Unavailable PROBLEMS Type Condition ICD9-CM Code [id number] Code Onset Dates Condition S tatus SNOMED Code Problem Mood disorder F39 Active 787186 05 Problem Unspecified psychosis F29 Active 17544153 Problem Drug abuse and dependence F19.20 Acti ve 2971480 Problem Unspecified episodic mood disorder F39 Active 96277587 Problem Hallucinations R44.3 Active 33765 01 ALLERGIES No Information ENCOUNTERS Encounter Location Date Diagnosis [facility] [place] [address] [facility] [id number] [address] [place] [phone] May, Mood disorder F39 [facility] [place] [address] [id number] [address] [place] [phone] Apr, Mood disorder F39 [facility] [place] [address] [facility] [id number] [address] [place] [phone] Mar, Mood disorder F39 [facility] [place] [address] [facility] [id number] [address] [place] [phone] Mar, Tinea pedis, unspecified lat erality B35.3 [facility] [place] [address] [id number] [address] [place] [phone] Feb, Mood disorder F39 [facility] [place] [address] [id number] [address] [place] [phone] Aug, Mood disorder F39 [facility] [place] [address] [facility] [id number] [address] [place] [phone] Aug, Drug abuse and dependence F1 9.20 [facility] [place] [address] [facility] [id number] [address] [place] [phone] Aug, Mood disorder F39 [facility] [place] [address] [facility] [id number] [address] [place] [phone] Jul, Mood disorder F39 [facility] [place] [address] [facility] [id number] [address] [place] [phone] 13 Jul, 2016 Drug abuse and dependence F1 9.20 [facility] [place] [address] [place] [id number] [address] [place] [phone] Mar, Unspecified psychosis F29 ; Unspecified episodic mood disorder F39 ; Drug abuse and dependence F19.20 ; Hallucinations R44.3 and Drug psychosis, 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 [facility] [place] [address] [facility] [id number] [address] [place] [phone] Feb, Unspecified psychosis F29 ; Unspecified episodic mood disorder F39 ; Drug abuse and dependence F19.20 and Hallucinations R44.3 [facility] [place] [address] [place] [id number] [address] [place] [phone] Dec, [facility] [place] [address] [place] [id number] [address] [place] [phone] Dec, [facility] [place] [address] [place] [id number] [address] [place] [phone] Nov, [facility] [place] [address] [place] [id number] [address] [place] [phone] Feb, Mood disorder F39 [facility] [address], [place] [id number] Jan, Mood disorder F39 [facility] [place] [address] [facility] [id number] [address] [place] [phone] Jan, [facility] [place] [address] [place] [id number] [address] [place] [phone] Nov, Normal physical examination, routine Z00.00 ; Hallucinations R44.3 and Drug abuse and dependence F19.20 [facility] [place] [address] [facility] [id number] [address] [place] [phone] Nov, Unspecified episodic mood di sorder F39 ; Drug abuse and dependence F19.20 and Unspecified psychosis F29 [facility] [place] [address] [facility] [id number] [address] [place] [phone] Aug, [facility] [place] [address] [facility] [id number] [address] [place] [phone] Aug, Confusion 298.9 and Substanc e abuse 305.90 [facility] [place] [address] [facility] [id number] [address] [place] [phone] Aug, Acute drug intoxication with perceptual disturbance 292.89 IMMUNIZATIONS No Known Immunizations SOCIAL HISTORY Never Assessed REASON FOR VISIT refill request PLAN OF CARE VITAL SIGNS MEDICATIONS Medication Instructions Dosage Frequency Start Date End Date Duration S tatus BuSpar 10 mg Orally Twice a day 2 tablets 12h Aug, 3 0 days Active Clonidine HCl 0.2 MG Orally twice a day as needed 1 tablet 13 Jul, 2016 30 day(s) Active Mirtazapine 15 mg Orally Once a day 1 tablet at bedtime 24h 27 2017 30 day(s) Active RESULTS No Results PROCEDURES No Known [...]
--- OUTSIDE RECORDS SUMMARY | 2019-07-15 04:45 | XMS REPORT ---
Author Author Anali GOFF Organization [employer] Address Unknown Phone Unavailable Care Team Providers Care Front Office Manager Name Role Phone MEG GOFF CP Unavailable Allergies No Known Allergies Problems Problem Type Condition Code Onset Dates Condition Statu s Problem Unspecified psychosis F29 Active Problem Hallucinations R44.3 Active Problem Unspecified episodic mood disorder F39 Active Problem Drug abuse and dependence F19.20 Ac tive Medications No Known Medications Results No Known Results Summary Purpose [employer] Submission
--- OUTSIDE RECORDS SUMMARY | 2019-07-15 04:45 | XMS REPORT ---
Author Author Anali GOFF Organization [facility] Address [address] [place] [address] Care Team Providers Care Draw Frame Operator Name Role Phone MEG GOFF Unavailable PROBLEMS Type Condition ICD9-CM Code [id number] Code Onset Dates Condition S tatus SNOMED Code Problem Mood disorder F39 Active 601147 05 Problem Unspecified psychosis F29 Active 65175884 Problem Drug abuse and dependence F19.20 Acti ve 6143606 Problem Unspecified episodic mood disorder F39 Active 01824170 Problem Hallucinations R44.3 Active 08960 01 ALLERGIES Substance Reaction Event Type Date Status Neurontin increased auditory hallucinations Drug Allergy Aug, Active Abilify increased auditory hallucinations Drug Allergy Aug, Active ENCOUNTERS Encounter Location Date Diagnosis [facility] [address] [facility] [id number] [address] [place] [phone] May, [facility] [address] [facility] [id number] [address] [place] [phone] Apr, Mood disorder F39 [facility] [address] [facility] [id number] [address] [place] [phone] Mar, Mood disorder F39 [facility] [address] [facility] [id number] [address] [place] [phone] Mar, Tinea pedis, unspecified lat erality B35.3 [facility] [address] [facility] [id number] [address] [place] [phone] Feb, Mood disorder F39 [facility] [address] [facility] [id number] [address] [place] [address] Aug, Mood disorder F39 [facility] [address] [facility] [id number] [address] [place] [phone] Aug, Drug abuse and dependence F1 9.20 [facility] [address] [id number] [address] [place] [phone] Aug, Mood disorder F39 [facility] [address] [id number] [address] [place] [phone] Jul, Mood disorder F39 [facility] [address] [facility] [id number] [address] [place] [phone] 13 Jul, 2016 Drug abuse and dependence F1 9.20 [facility] [address] [id number] [address] [place] [phone] 03 Mar, 2016 Unspecified psychosis F29 ; Unspecified episodic mood disorder F39 ; Drug abuse and dependence F19.20 ; Hallucinations R44.3 and Drug psychosis, 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 [facility] [address] [facility] [id number] [address] [place] [phone] Feb, Unspecified psychosis F29 ; Unspecified episodic mood disorder F39 ; Drug abuse and dependence F19.20 and Hallucinations R44.3 [facility] [address] [facility] [id number] [address] [place] [phone] Dec, [facility] [address] [facility] [id number] [address] [place] [phone] Dec, [facility] [address] [facility] [id number] [address] [place] [phone] Nov, [facility] [address] [facility] [id number] [address] [place] [phone] Feb, Mood disorder F39 [facility] [address], [place] [id number] 57 Jan, Mood disorder F39 [facility] [address] [facility] [id number] [address] [place] [phone] Jan, [facility] [address] [facility] [id number] [address] [place] [phone] Nov, Normal physical examination, routine Z00.00 ; Hallucinations R44.3 and Drug abuse and dependence F19.20 [facility] [address] [facility] [id number] [address] [place] [address] Nov, Unspecified episodic mood di sorder F39 ; Drug abuse and dependence F19.20 and Unspecified psychosis F29 [facility] [address] [facility] [id number] [address] [place] [address] Aug, [facility] [address] [place] [id number] [address] [place] [phone] Aug, Confusion 298.9 and Substanc e abuse 305.90 [place] [address] [facility] [id number] [address] [place] [address] Aug, Acute drug intoxication with perceptual disturbance 292.89 IMMUNIZATIONS No Known Immunizations SOCIAL HISTORY Never Assessed REASON FOR VISIT prison rx PLAN OF CARE VITAL SIGNS MEDICATIONS Medication Instructions Dosage Frequency Start Date End Date Duration S tatus Clonidine HCl 0.2 MG Orally twice a day as needed 1 tablet Jul, 30 day(s) Active RESULTS No Results PROCEDURES [...]
--- OUTSIDE RECORDS SUMMARY | 2019-07-15 04:45 | XMS REPORT ---
Author Author Anali GOFF [employer] Address Unknown Phone Unavailable Care Team Providers Care Rock Loader Name Role Phone MEG GOFF CP Unavailable [...] Date End Date Status Dosage Trazodone HCl [facility] [address]-06 100 MG Orally Once a day Feb 04 5 1 tablet at bedtime as needed Results No Known Results Summary Purpose [employer] Submission
--- OUTSIDE RECORDS SUMMARY | 2019-07-15 04:45 | XMS REPORT ---
Author Author Anali GOFF [employer] Address Unknown Phone Unavailable Care Team Providers Care Manager Field Sales Name Role Phone MEG GOFF CP Unavailable Allergies No Known Allergies Problems Problem Type Condition Code Onset Dates Condition Statu s Problem Unspecified psychosis F29 Active Problem Hallucinations R44.3 Active Problem Unspecified episodic mood disorder F39 Active Problem Drug abuse and dependence F19.20 Ac tive Medications Medication Code System Code Instructions Start Date End Date Status Dosage Trazodone HCl [facility] [address]-13 150 MG Orally Once a day Feb 04 5 1 tablet at bedtime as needed Results No Known Results Summary Purpose [employer] Submission
--- OUTSIDE RECORDS SUMMARY | 2019-07-15 04:45 | XMS REPORT ---
Author Author Anali HUERTAS [facility] Address [address] [place] [address] Care Team Providers Care Oyster Bed Worker Name Role Phone KATELYN HUERTAS Unavailable PROBLEMS Type Condition ICD9-CM Code [id number] Code Onset Dates Condition S tatus SNOMED Code Problem Mood disorder F39 Active 064774 05 Problem Unspecified psychosis F29 Active 77137090 Problem Drug abuse and dependence F19.20 Acti ve 2829577 Problem Unspecified episodic mood disorder F39 Active 11265691 Problem Hallucinations R44.3 Active 61642 01 ALLERGIES Substance Reaction Event Type Date Status Neurontin increased auditory hallucinations Drug Allergy Mar, Active Abilify increased auditory hallucinations Drug Allergy Mar, Active SOCIAL HISTORY No smoking Hx information available PLAN OF CARE VITAL SIGNS MEDICATIONS Unknown Medications RESULTS No Results PROCEDURES No Known procedures IMMUNIZATIONS No Known Immunizations
--- OUTSIDE RECORDS SUMMARY | 2019-07-15 04:45 | XMS REPORT ---
Author Author Anali GOFF Organization [employer] Address Unknown Phone Unavailable Care Team Providers Care Quality Assurance Technician Name Role Phone MEG GOFF CP Unavailable Allergies No Known Allergies Problems Problem Type Condition Code Onset Dates Condition Statu s Problem Unspecified psychosis F29 Active Problem Hallucinations R44.3 Active Problem Unspecified episodic mood disorder F39 Active Problem Drug abuse and dependence F19.20 Ac tive Medications Medication Code System Code Instructions Start Date End Date Status Dosage Metronidazole [facility] [address]-66 500 MG Orally BID Dec 02, 2015 Nov 152015 1 tablet Trazodone HCl [facility] [address]-19 100 MG Orally Once a day Feb 04 5 1 tablet at bedtime as needed Results No Known Results Summary Purpose [employer] Submission
--- OUTSIDE RECORDS SUMMARY | 2019-07-15 04:45 | XMS REPORT ---
Author Author Anali GOFF Organization [facility] Address [address] [place] [address] Care Team Providers Care Occupational Therapist Assistants Name Role Phone MEG GOFF Unavailable PROBLEMS Type Condition ICD9-CM Code [id number] Code Onset Dates Condition S tatus SNOMED Code Problem Mood disorder F39 Active 360334 05 Problem Unspecified psychosis F29 Active 66020685 Problem Drug abuse and dependence F19.20 Acti ve 8714475 Problem Unspecified episodic mood disorder F39 Active 32666177 Problem Hallucinations R44.3 Active 97505 01 ALLERGIES Substance Reaction Event Type Date Status Neurontin increased auditory hallucinations Drug Allergy Mar, Active Abilify increased auditory hallucinations Drug Allergy Mar, Active ENCOUNTERS Encounter Location Date Diagnosis [facility] [address] [facility] [id number] [address] [place] [phone] May, Mood disorder F39 [facility] [address] [facility] [id number] [address] [place] [phone] Apr, Mood disorder F39 [facility] [address] [facility] [id number] [address] [place] [phone] Mar, Mood disorder F39 [facility] [address] [facility] [id number] [address] [place] [address] Mar, Tinea pedis, unspecified lat erality B35.3 [facility] [address] [id number] [address] [place] [phone] Feb, Mood disorder F39 [facility] [address] [facility] [id number] [address] [place] [address] Aug, Mood disorder F39 [facility] [address] [facility] [id number] [address] [place] [phone] Aug, Drug abuse and dependence F1 9.20 [facility] [address] [id number] [address] [place] [phone] Aug, Mood disorder F39 [facility] [address] [id number] [address] [place] [phone] Jul, Mood disorder F39 [facility] [address] [id number] [address] [place] [phone] Jul, Drug abuse and dependence F1 9.20 [facility] [address] [id number] [address] [place] [address] Mar, Unspecified psychosis F29 ; Unspecified episodic mood disorder F39 ; Drug abuse and dependence F19.20 ; Hallucinations R44.3 and Drug psychosis, 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 [facility] [address] [id number] [address] [place] [address] Feb, Unspecified psychosis F29 ; Unspecified episodic mood disorder F39 ; Drug abuse and dependence F19.20 and Hallucinations R44.3 [facility] [address] [facility] [id number] [address] [place] [phone] Dec, [facility] [address] [id number] [address] [place] [phone] Dec, [facility] [address] [facility] [id number] [address] [place] [address] Nov, [facility] [address] [id number] [address] [place] [phone] Feb, Mood disorder F39 [facility] [address] [place], [place] [id number] 57 Jan, Mood disorder F39 [facility] [address] [id number] [address] [place] [phone] Jan, [facility] [address] [facility] [id number] [address] [place] [address] Nov, Normal physical examination, routine Z00.00 ; Hallucinations R44.3 and Drug abuse and dependence F19.20 [facility] [address] [facility] [id number] [address] [place] [phone] Nov, Unspecified episodic mood di sorder F39 ; Drug abuse and dependence F19.20 and Unspecified psychosis F29 [facility] [address] [facility] [id number] [address] [place] [phone] Aug, [facility] [address] [place] [id number] [address] [place] [phone] Aug, Confusion 298.9 and Substanc e abuse 305.90 [facility] [address] [facility] [id number] [address] [place] [address] Aug, Acute drug intoxication with perceptual disturbance 292.89 IMMUNIZATIONS No Known Immunizations SOCIAL HISTORY Never Assessed REASON FOR VISIT shelter rx PLAN OF CARE VITAL SIGNS MEDICATIONS Medication Instructions Dosage Frequency Start Date End Date Duration S tatus Mirtazapine 15 MG Orally Once a day 1 tablet at bedtime 24h 27 F 2017 30 day(s) Active RESULTS No Results [...]
--- OUTSIDE RECORDS SUMMARY | 2019-07-15 04:45 | XMS REPORT ---
Author Author Anali GOFF Organization [facility] Address [address] [place] [address] Care Team Providers Care Operational Risk Analyst Name Role Phone MEG GOFF Unavailable PROBLEMS Type Condition ICD9-CM Code [id number] Code Onset Dates Condition S tatus SNOMED Code Problem Mood disorder F39 Active 420022 05 Problem Unspecified psychosis F29 Active 55459373 Problem Drug abuse and dependence F19.20 Acti ve 6966316 Problem Unspecified episodic mood disorder F39 Active 65309764 Problem Hallucinations R44.3 Active 69550 01 ALLERGIES No Information ENCOUNTERS Encounter Location Date Diagnosis [facility] [address] [facility] [id number] [address] [place] [phone] Sep, [facility] [address] [id number] [address] [place] [phone] May, Mood disorder F39 [facility] [address] [id number] [address] [place] [phone] Apr, Mood disorder F39 [facility] [address] [id number] [address] [place] [address] Mar, Mood disorder F39 [facility] [address] [id number] [address] [place] [phone] Mar, Tinea pedis, unspecified lat erality B35.3 [facility] [address] [id number] [address] [place] [phone] Feb, Mood disorder F39 [facility] [address] [id number] [address] [place] [phone] Aug, Mood disorder F39 [facility] [address] [facility] [id number] [address] [place] [phone] Aug, Drug abuse and dependence F1 9.20 [facility] [address] [id number] [address] [place] [phone] Aug, Mood disorder F39 [facility] [address] [id number] [address] [place] [phone] Jul, Mood disorder F39 [facility] [address] [id number] [address] [place] [phone] Jul, Drug abuse and dependence F1 9.20 [facility] [address] [id number] [address] [place] [phone] Mar, Unspecified psychosis F29 ; Unspecified episodic mood disorder F39 ; Drug abuse and dependence F19.20 ; Hallucinations R44.3 and Drug psychosis, 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 [facility] [address] [id number] [address] [place] [phone] Feb, Unspecified psychosis F29 ; Unspecified episodic mood disorder F39 ; Drug abuse and dependence F19.20 and Hallucinations R44.3 [facility] [address] [facility] [id number] [address] [place] [phone] Dec, [facility] [address] [id number] [address] [place] [phone] Dec, [facility] [address] [facility] [id number] [address] [place] [phone] Nov, [facility] [address] [id number] [address] [place] [phone] Feb, Mood disorder F39 [facility] [address] [place], [place] [id number] 57 Jan, Mood disorder F39 [facility] [address] [id number] [address] [place] [phone] Jan, [facility] [address] [facility] [id number] [address] [place] [phone] Nov, Normal physical examination, routine Z00.00 ; Hallucinations R44.3 and Drug abuse and dependence F19.20 [facility] [address] [facility] [id number] [address] [place] [phone] Nov, Unspecified episodic mood di sorder F39 ; Drug abuse and dependence F19.20 and Unspecified psychosis F29 [facility] [address] [facility] [id number] [address] [place] [phone] Aug, [facility] [address] [facility] [id number] [address] [place] [phone] Aug, Confusion 298.9 and Substanc e abuse 305.90 [place] [address] [facility] [id number] [address] [place] [address] Aug, Acute drug intoxication with perceptual disturbance 292.89 IMMUNIZATIONS No Known Immunizations SOCIAL HISTORY Never Assessed REASON FOR VISIT [facility] rx PLAN OF CARE VITAL SIGNS MEDICATIONS Medication Instructions Dosage Frequency Start Date End Date Duration S tatus Clonidine HCl 0.2 MG Orally twice a day as needed 1 tablet Jul, 30 day(s) Active Mirtazapine 15 mg Orally Once a day 1 tablet at bedtime 24h 27 2017 30 day(s) Active BuSpar 10 mg Orally Twice a day 2 tablets 12h Aug, 3 0 days Active RESULTS No Results PROCEDURES No Known [...]
--- OUTSIDE RECORDS SUMMARY | 2019-07-15 04:45 | XMS REPORT ---
Author Author Anali GOFF Organization [facility] Address [address] [place] [address] Care Team Providers Care Stone Lathe Operator Name Role Phone MEG GOFF Unavailable PROBLEMS Type Condition ICD9-CM Code [id number] Code Onset Dates Condition S tatus SNOMED Code Problem Mood disorder F39 Active 841504 05 Problem Unspecified psychosis F29 Active 47374376 Problem Drug abuse and dependence F19.20 Acti ve 9267673 Problem Unspecified episodic mood disorder F39 Active 20858715 Problem Hallucinations R44.3 Active 29984 01 ALLERGIES Substance Reaction Event Type Date Status Neurontin increased auditory hallucinations Drug Allergy Feb, Active Abilify increased auditory hallucinations Drug Allergy Feb, Active ENCOUNTERS Encounter Location Date Diagnosis [facility] [address] [facility] [id number] [address] [place] [phone] May, Mood disorder F39 [facility] [address] [facility] [id number] [address] [place] [phone] Apr, Mood disorder F39 [facility] [address] [facility] [id number] [address] [place] [phone] Mar, Mood disorder F39 [facility] [address] [facility] [id number] [address] [place] [phone] Mar, Tinea pedis, unspecified lat erality B35.3 [facility] [address] [facility] [id number] [address] [place] [phone] Feb, Mood disorder F39 [facility] [address] [facility] [id number] [address] [place] [phone] Aug, Mood disorder F39 [facility] [address] [facility] [id number] [address] [place] [address] Aug, Drug abuse and dependence F1 9.20 [facility] [address] [facility] [id number] [address] [place] [phone] Aug, Mood disorder F39 [facility] [address] [facility] [id number] [address] [place] [phone] Jul, Mood disorder F39 [facility] [address] [facility] [id number] [address] [place] [phone] 13 Jul, 2016 Drug abuse and dependence F1 9.20 [facility] [address] [facility] [id number] [address] [place] [phone] Mar, Unspecified psychosis F29 ; Unspecified episodic mood disorder F39 ; Drug abuse and dependence F19.20 ; Hallucinations R44.3 and Drug psychosis, 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 [facility] [address] [facility] [id number] [address] [place] [phone] Feb, Unspecified psychosis F29 ; Unspecified episodic mood disorder F39 ; Drug abuse and dependence F19.20 and Hallucinations R44.3 [facility] [address] [facility] [id number] [address] [place] [phone] Dec, [facility] [address] [facility] [id number] [address] [place] [phone] Dec, [facility] [address] [facility] [id number] [address] [place] [phone] Nov, [facility] [address] [facility] [id number] [address] [place] [phone] Feb, Mood disorder F39 [facility] [address] [place], [place] [id number] 57 Jan, Mood disorder F39 [facility] [address] [facility] [id number] [address] [place] [phone] Jan, [facility] [address] [facility] [id number] [address] [place] [phone] Nov, Normal physical examination, routine Z00.00 ; Hallucinations R44.3 and Drug abuse and dependence F19.20 [facility] [address] [facility] [id number] [address] [place] [phone] Nov, Unspecified episodic mood di sorder F39 ; Drug abuse and dependence F19.20 and Unspecified psychosis F29 [facility] [address] [facility] [id number] [address] [place] [phone] Aug, [facility] [address] [place] [id number] [address] [place] [phone] Aug, Confusion 298.9 and Substanc e abuse 305.90 [place] [address] [facility] [id number] [address] [place] [address] Aug, Acute drug intoxication with perceptual disturbance 292.89 IMMUNIZATIONS No Known Immunizations SOCIAL HISTORY Never Assessed REASON FOR VISIT custodial rx PLAN OF CARE VITAL SIGNS MEDICATIONS Medication Instructions Dosage Frequency Start Date End Date Duration S tatus Trazodone HCl 150 MG Orally Once a day 1 tablet at bedtime as neede d 24h Jan, Active BuSpar 10 MG Orally Twice a day 2 tablets 12h Aug, Active Clonidine HCl 0.2 MG Orally twice [...]
--- NOTE | 2019-07-15 05:12 | NUR ---
PATIENT DECLINES BLOOD WORK AND CARDIAC WORK UP FOR ELEVATED HEART RATE STATING SHE HAS TO LEAVE AND GO TO WORK. PATIENT DID PERMIT THIS RN TO OBTAIN AN EKG BUT REFUSES BLOOD WORK. FOLLOW UP WITH HER PRIMARY PHYSICIAN ENCOURAGED.
--- NOTE | 2019-07-15 05:14 | ED Integumentary General ---
General Chief Complaint: General Problems/Pain Stated Complaint: RASH Source: patient Exam Limitations: no limitations History of Present Illness Date Seen by Provider: July 15, 2019 Time Seen by Provider: 04:58 Initial Comments Patient presents ER by private conveyance with her significant other and chief complaint of itchy rash over the past couple weeks. She said she had a couple holes people living with her left 2 weeks ago. Since then she and her shital tellez had itchy spots all over the body. No drainage from the rash. No fevers chills cough shortness of breath. She has no history of heart disease or tachycardias. Has no palpitations, chest pain shortness of breath. She said she is drank about 3 NOS energy drinks overnight as well as took a black yellowjacket from a gas station this morning so she could drive down to [place] and be ready to work early in the morning. Other than that she denies using any other stimulants such as methamphetamine, cocaine etc. Allergies and Home Medications Allergies Coded Allergies: NKANo Known Allergies (Verified Allergy, Mild, 06/19/19) Home Medications Meloxicam 15 Mg Tablet, 15 MG PO DAILY Prescribed by: JACKIE KOROMA on 03/10/19 3630 Patient Home Medication List Home Medication List Reviewed: Yes Review of Systems Review of Systems Constitutional: No chills, No diaphoresis EENTM: No no symptoms reported, No ear pain, No vision loss, No mouth pain Respiratory: No cough, No short of breath Cardiovascular: No chest pain, No edema Gastrointestinal: No abdominal pain, No constipation, No vomiting Genitourinary: No discharge, No dysuria : No (tubal ligation) Musculoskeletal: No back pain, No joint pain Skin: see HPI Past Esrvrrb-Hijkdb-Oohsqi Hx Patient Social History Alcohol Use: Rarely Uses Alcohol Beverage of Choice: Beer Recreational Drug Use: No (denies currently) Drug of Choice: EXTENSIVE HX OF IV DRUGS INCLUDING METH,AMPHET,MDMA/ECSTASY, BZO,THC,K2 Smoking Status: Current Everyday Smoker Type Used: Cigarettes 2nd Hand Smoke Exposure: Yes Recent Foreign Travel: No Contact w/Someone Who Travel: No Recent Hopitalizations: No Seasonal Allergies Seasonal Allergies: No Past Medical History Surgeries: Yes Orthopedic, Tubal Ligation Respiratory: No Cardiac: No Neurological: Yes 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 Sexually Transmitted Disease: Yes (TRICHOMONAS, CHLAMYDIA) Genitourinary: No Gastrointestinal: No Musculoskeletal: No Endocrine: No HEENT: No Cancer: No Psychosocial: Yes (POLYSUBSTANCE ABUSE) Integumentary: No Blood Disorders: No Family Medical History Heart Disease Physical Exam Vital Signs Capillary Refill : General Appearance: WD/WN, no apparent distress HEENT: PERRL/EOMI, pharynx normal Neck: non-tender, full range of motion, normal inspection Cardiovascular: normal peripheral pulses, regular rate, rhythm Respiratory: lungs clear, normal breath sounds, no respiratory distress, no accessory muscle use Gastrointestinal: non tender, soft, no organomegaly Extremities: normal range of motion, normal inspection, normal capillary refill Neurologic/Psychiatric: alert, normal mood/affect, oriented x 3 Skin: normal color, warm/dry, other (few faint punctate, erythematous macular mildly excoriated independent spots about 6-7 mm diameter on lower extremities and upper extremities.) Progress/Results/Core Measures Results/Orders My Orders Orders - ALEJANDRO ARVIZU Continuous Ekg Monitoring (07/15/19 05:08) Ekg Tracing (07/15/19 05:08) Troponin I (07/15/19 05:08) Cbc With Automated Diff (07/15/19 05:08) Comprehensive Metabolic Panel (07/15/19 05:08) Hs C Reactive Protein (07/15/19 05:08) Progress Progress Note : Time: 05:16 Progress Note We obtained EKG which shows sinus tachycardia. Patient has declined any further workup at this time she really has to get to work. We'll send permethrin to the pharmacy for her and have encouraged her strongly to follow-up with a primary care doctor. We've also given return precautions. Suspect the tachycardia is related to stimulants. Initial ECG Impression Date: July 15, 2019 Initial ECG Impression Time: 05:06 Initial ECG Rate: 126 Initial ECG Rhythm: S.Tach Initial ECG Intervals: Normal Initial ECG Impression: Normal Comment Sinus tachycardia without clinically relevant ST-T elevation or depression. Departure Impression Primary Impression: Scabies exposure Additional Impression: Sinus tachycardia by electrocardiogram Disposition: HOME, SELF-CARE Condition: Stable Departure-Patient Inst. Decision time for Depature: 05:18 Referrals: [facility] (PCP/Family) Primary Care Physician Patient Instructions: Scabies, Tachycardia (DC) Add. Discharge Instructions: Please follow-up with primary care doctor and discuss your rapid heart rate. Return to the nearest ER immediately if you begin to experience chest pain, shortness of breath or other worrisome symptoms. After bathing apply permethrin cream from your neck down to your toes and then wear long sleeved pajamas and go to sleep. Following morning you may shower off the cream. Repeat the cream application in 14 days. All discharge instructions reviewed with patient and/or family. Voiced understanding. Scripts Permethrin (Permethrin) 60 Gm Cream..g. 60 GM TP ONCE for 14 Days, #2 TUBE 1 Refill Prov: ALEJANDRO ARVIZU 07/15/19 ALEJANDRO ARVIZU July 15, 2019 05:14
[2019-07-15] MEDS ORDERED: PERM60CR4 TP (05:20)
[2019-07-15 05:29] VITALS: BP 143/95
== END 2019-07-15 05:24 | disposition home or self-care (01) ==
LOC: EDUNIT# 04:38 → ER 04:41
DX: R00.0 Tachycardia, unspecified (principal); F17.210 Nicotine dependence, cigarettes, uncomplicated; Z20.7 Contact with and (suspected) exposure to pediculosis, acariasis and other infestations; Z82.49 Family history of ischemic heart disease and other diseases of the circulatory system
CPT/HCPCS: 93005

== ENCOUNTER 2019-12-05 22:21 | Emergency (ER) | payer SELFPAY ==
[~2019-12-05] VITALS: Ht 157 cm; Wt 61.1 kg
[~2019-12-05 22:21] MED LIST changes: +PERM60CR4 TP
[2019-12-05 22:30] VITALS: BP 139/95
--- NOTE | 2019-12-05 22:54 | ED Lower Extremity ---
General Chief Complaint: Lower Extremity Stated Complaint: LEG SWELLING Nursing Triage Note: left knee swelling x3 days, worse x1 day. denies injury. Nursing Sepsis Screen: No Definite Risk Source: patient History of Present Illness Date Seen by Provider: Dec 05, 2019 Time Seen by Provider: 22:43 Initial Comments C/O LEFT KNEE SWELLING FOR 3-4 DAYS STATES IT HURTS WITH CERTAIN POSITIONS NO RECENT INJURY, BUT SPRAINED IT A YEAR AGO--SAW DR. MOELLER AT [facility], AND IT HEALED AND HAS NOT HAD ANY PROBLEMS SINCE NO UNUSUAL ACTIVITY. PT IS UNEMPLOYED NO PARESTHESIAS OR MOTOR DEFICITS NO DISCOLORATION TO KNEE PUT ICY HOT ON IT WITHOUT IMPROVEMENT, BUT HAS NOT APPLIED ACTUAL ICE TO THE AREA HAS AN TRAN WRAP AND KNEE IMMOBILIZER AT HOME, BUT HAS NOT USED THEM HAS NOT TAKEN ANYTHING FOR PAIN SYMPTOMS NO DIFFERENT TONIGHT, HAS NOT SOUGHT CARE UNTIL TONIGHT. PCP: [facility] Allergies and Home Medications Allergies Coded Allergies: NKANo Known Allergies (Verified Allergy, Mild, 06/19/19) Home Medications Meloxicam 15 Mg Tablet, 15 MG PO DAILY Prescribed by: JACKIE KOROMA on 12/05/19 2907 Patient Home Medication List Home Medication List Reviewed: Yes Review of Systems Constitutional: no symptoms reported Cardiovascular: no symptoms reported Gastrointestinal: no symptoms reported Genitourinary: no symptoms reported : No LMP: Dec 04, 2019 Control/STD Prophylaxis: Other (BTL) Musculoskeletal: see HPI Skin: no symptoms reported Psychiatric/Neurological: No Symptoms Reported Past Ejscpua-Pplzha-Dnypvx Hx Patient Social History Alcohol Use: Denies Use Number of Drinks Today: AA Alcohol Beverage of Choice: Beer Recreational Drug Use: No Drug of Choice: denies Smoking Status: Current Everyday Smoker Type Used: Cigarettes 2nd Hand Smoke Exposure: Yes Recent Foreign Travel: No Contact w/Someone Who Travel: No Recent Infectious Disease Expo: No Recent Hopitalizations: No Immunizations Up To Date Tetanus Booster (TDap): Unknown Seasonal Allergies Seasonal Allergies: No Past Medical History Surgeries: Yes Orthopedic, Tubal Ligation Respiratory: No Cardiac: Yes Hypertension Neurological: Yes 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 : No Last Menstrual Period: Dec 05, 2019 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 oz. 54.204438je; 24.00 BMI Method:Stated General Appearance: WD/WN, no apparent distress Hips: left hip normal inspection Legs: left leg normal inspection Knees: left knee normal range of motion, left knee bone tenderness, left knee pain, left knee soft tissue tenderness, left knee swelling, left knee other (NO CREPITANCE OR LIGAMENT LAXITY; DIFFUSE TENDERNESS TO KNEE, INCLUDING MILD TENDERNESS POSTERIORLY WELL. ) Ankles: left ankle normal inspection Feet: left foot normal inspection Neurologic/Tendon: normal sensation, normal motor functions, normal tendon functions Neurologic/Psychiatric: carrier blower II-XII nml as tested, no motor/sensory deficits, alert, normal mood/affect, oriented x 3 Skin: normal color, warm/dry; No ecchymosis Progress/Results/Core Measures Results/Orders My Orders Orders - JACKIE KOROMA DO Knee, Left, 3 Views (12/05/19 22:48) Ketorolac Injection (Toradol Injection) (12/05/19 23:30) Vital Signs/I&O 12/05/19 22:30 Temp 36.6 Pulse 87 Resp 18 B/P (MAP) 139/95 (110) Pulse Ox 99 O2 Delivery Room Air Blood Pressure Mean: 110 Departure Impression Primary Impression: Pain and swelling of left knee Disposition: 01 HOME, SELF-CARE Condition: Stable Departure-Patient Inst. Referrals: [facility] (PCP/Family) Primary Care Physician MARIA R PENA MD Patient Instructions: Knee Pain (DC) Add. Discharge Instructions: TRAN WRAP AND KNEE IMMOBILIZER FOR PAIN AND SWELLING ICE TO AREA AT 20 MINUTE INTERVALS FOLLOW UP WITH DR. PENA, ORTHOPEDIC SURGEON THIS WEEK FOR FURTHER CARE All discharge instructions reviewed with patient and/or family. Voiced unde rstanding. Scripts Meloxicam (Mobic) 15 Mg Tablet 15 MG PO DAILY, #10 TAB Prov: JACKIE KOROMA DO 12/05/19 JACKIE KOROMA DO Dec 05, 2019 22:54
[2019-12-05] MEDS ORDERED: MELO15TA14 PO (23:13)
[2019-12-05] MEDS ORDERED: KETOROLAC 60 MG/2 ML VIAL IM ONE (23:30)
--- NOTE | 2019-12-06 07:37 | Diagnostic Imaging Report ---
INDICATION: Pain FINDINGS: 3 view left knee showed no fracture, dislocation, joint effusion, loose body or acute abnormalities. IMPRESSION: Negative. Dictated by: Dictated on workstation # [id number]
== END 2019-12-05 23:26 | disposition home or self-care (01) ==
LOC: EDUNIT# 22:21 → ER 22:22
DX: M25.462 Effusion, left knee (principal); F17.210 Nicotine dependence, cigarettes, uncomplicated; Z82.49 Family history of ischemic heart disease and other diseases of the circulatory system
CPT/HCPCS: 73562

== ENCOUNTER 2020-01-24 21:52 | Emergency (ER) | payer SELFPAY ==
[~2020-01-24] VITALS: Ht 157 cm; Wt 63.0 kg
--- NOTE | 2020-01-24 22:58 | NUR ---
REPORT TO VALERIA BETH
[2020-01-24] MEDS ORDERED: lisINopril 10 MG (PRINIVIL) TABLET PO ONE (23:00)
[2020-01-24] MEDS ORDERED: LISI10TA2 PO (23:01)
--- NOTE | 2020-01-24 23:02 | ED General ---
General Chief Complaint: General Problems/Pain Stated Complaint: HIGH BLOOD PRESSURE Nursing Triage Note: PT TO ED STATING SHE IS NEEDING A REFILL OF HER LISINOPRIL. STATES SHE IS UNABLE TO GET IN TO SEE HER DR. REPORTS SHE'S BEEN OUT FOR A COUPLE OF DAYS Nursing Sepsis Screen: No Definite Risk Source of Information: Patient, Old Records Exam Limitations: No Limitations History of Present Illness Date Seen by Provider: Jan 24, 2020 Time Seen by Provider: 22:48 Initial Comments This 39-year-old young lady presents to the emergency room because she has been out of her lisinopril for a couple of days and she was concerned about high blood pressure today. She denies any secondary symptoms of hypertension such as headache, vision changes, etc. She is not able to get into her primary care provider because she has an unsettled bill. She also reports pelvic pain associated with her menstrual cycle. She has pelvic scarring from prior PID. She was noted to be tachycardic and she explains that her tachycardia is due to her pelvic pain which she does not desire to have addressed today.It was noted in her chart that she has a significant history of prior positive drug screens. Allergies and Home Medications Allergies Coded Allergies: NKANo Known Allergies (Verified Allergy, Mild, 06/19/19) Home Medications Lisinopril 10 Mg Tablet, 10 MG PO DAILY Prescribed by: BALWINDER COSTA on 01/24/201 Meloxicam 15 Mg Tablet, 15 MG PO DAILY Prescribed by: JACKIE KOROMA on 12/05/19 2313 Patient Home Medication List Home Medication List Reviewed: Yes Review of Systems Review of Systems Constitutional: no symptoms reported EENTM: no symptoms reported Respiratory: no symptoms reported Cardiovascular: see HPI Gastrointestinal: see HPI Genitourinary: see HPI : No LMP: Jan 23, 2020 Musculoskeletal: no symptoms reported Skin: no symptoms reported Psychiatric/Neurological: No Symptoms Reported Hematologic/Lymphatic: No Symptoms Reported Past Khhcdsi-Gnhzka-Yvxiar Hx Past Med/Social Hx: Reviewed Nursing Past Med/Soc Hx Patient Social History Alcohol Use: Denies Use Alcohol Beverage of Choice: Beer Recreational Drug Use: Yes Drug of Choice: MARIJUANA Smoking Status: Current Everyday Smoker Type Used: Cigarettes 2nd Hand Smoke Exposure: Yes Recent Foreign Travel: No Contact w/Someone Who Travel: No Recent Infectious Disease Expo: No Recent Hopitalizations: No Physical Abuse: No Sexual Abuse: No Mistreated: No Fear: No Immunizations Up To Date Tetanus Booster (TDap): Unknown Seasonal Allergies Seasonal Allergies: No Past Medical History Surgeries: Yes Orthopedic, Tubal Ligation Respiratory: No Cardiac: Yes Hypertension Neurological: Yes 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 oz. 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 Skin: Normal Color, Warm/Dry Progress/Results/Core Measures Suspected Sepsis Recent Fever Within 48 Hours: No Infection Criteria Present: None New/Unexplained Altered Menta: No Sepsis Screen: No Definite Risk SIRS Temperature: Pulse: 127 Respiratory Rate: 20 Blood Pressure 125 /93 Mean: 104 Results/Orders My Orders Orders - BALWINDER MADDOX MD Lisinopril Tablet (Zestril Tablet) (01/24/20 23:00) Vital Signs/I&O Capillary Refill : Less Than 3 Seconds Blood Pressure Mean: 104 Progress Note : Progress Note A dose of lisinopril was administered in the ER and a prescription for a couple of weeks was sent. Departure Impression Primary Impression: Hypertension Qualified Codes: I10 - Essential (primary) hypertension Additional Impression: Menstrual cramps Disposition: HOME, SELF-CARE Condition: Stable Departure-Patient Inst. Decision time for Depature: 22:59 Referrals: [facility] (PCP/Family) Primary Care Physician Patient Instructions: High Blood Pressure (DC) Add. Discharge Instructions: Follow-up with your primary care provider soon as possible. You may take Tylenol and/or ibuprofen for your pelvic pain related to your menstrual cycle. Return to care if you have worsening symptoms or have any other questions or concerns. All discharge instructions reviewed with patient and/or family. Voiced understanding. Scripts Lisinopril (Lisinopril) 10 Mg Tablet 10 MG PO DAILY, #14 TAB Prov: BALWINDER MADDOX MD 01/24/20 BALWINDER MADDOX MD Jan 24, 2020 23:02
[2020-01-24 23:24] VITALS: BP 127/84
== END 2020-01-24 23:24 | disposition home or self-care (01) ==
LOC: EDUNIT# 21:52 → ER 21:54
DX: I10 Essential (primary) hypertension (principal); N94.6 Dysmenorrhea, unspecified; F17.210 Nicotine dependence, cigarettes, uncomplicated; Z82.49 Family history of ischemic heart disease and other diseases of the circulatory system
CPT/HCPCS: 99283

== ENCOUNTER 2020-11-05 04:26 | Emergency (ER) | payer SELFPAY ==
[~2020-11-05] VITALS: Ht 157 cm; Wt 54.4 kg
[~2020-11-05 04:26] MED LIST changes: +LISI10TA25 PO
[2020-11-05 04:50] LABS: BASOPHILS # (AUTO) 0.1 10^3/uL (0.0-0.1); BASOPHILS % (AUTO) 1 % (0-10); EOSINOPHILS # (AUTO) 0.1 10^3/uL (0.0-0.3); EOSINOPHILS % (AUTO) 1 % (0-10); HEMATOCRIT 45 % (35-52); HEMOGLOBIN 14.6 g/dL (11.5-16.0); LYMPHOCYTES # (AUTO) 2.2 10^3/uL (1.0-4.0); LYMPHOCYTES % (AUTO) 26 % (12-44); MEAN CORPUSCULAR HEMOGLOBIN 30 pg (25-34); MEAN CORPUSCULAR HGB CONC 33 g/dL (32-36); MEAN CORPUSCULAR VOLUME 93 fL (80-99); MEAN PLATELET VOLUME 9.1 fL (9.0-12.2); MONOCYTES # (AUTO) 0.7 10^3/uL (0.0-1.0); MONOCYTES % (AUTO) 9 % (0-12); NEUTROPHILS # (AUTO) 5.2 10^3/uL (1.8-7.8); NEUTROPHILS % (AUTO) 63 % (42-75); PLATELET COUNT 303 10^3/uL (130-400); WHITE BLOOD COUNT 8.3 10^3/uL (4.3-11.0)
[2020-11-05 04:53] LABS: ALBUMIN 4.3 GM/DL (3.2-4.5); CHLORIDE 106 MMOL/L (98-107); POTASSIUM 3.8 MMOL/L (3.6-5.0); SODIUM 139 MMOL/L (135-145)
[2020-11-05 04:54] LABS: CALCIUM 9.4 MG/DL (8.5-10.1)
[2020-11-05 04:55] LABS: GLUCOSE 66 MG/DL (70-105); TOTAL PROTEIN 6.9 GM/DL (6.4-8.2)
[2020-11-05 04:56] LABS: CARBON DIOXIDE 21 MMOL/L (21-32)
[2020-11-05 04:57] LABS: BILIRUBIN,TOTAL 0.4 MG/DL (0.1-1.0)
[2020-11-05 04:59] LABS: ALKALINE PHOSPHATASE 58 U/L (40-136); GFR ESTIMATED 80
[2020-11-05 05:00] LABS: BUN/CREATININE RATIO 11
[2020-11-05 05:02] LABS: ALANINE AMINOTRANSFERASE 13 U/L (0-55); MAGNESIUM 1.9 MG/DL (1.6-2.4)
[2020-11-05 05:04] LABS: BILIRUBIN,URINE NEGATIVE (NEGATIVE); CLARITY,URINE CLEAR; COLOR,URINE YELLOW; GLUCOSE, URINE (UA) NEGATIVE (NEGATIVE); KETONES,URINE 1+ (NEGATIVE); LEUKOCYTE ESTERASE ,URINE NEGATIVE (NEGATIVE); NITRITE,URINE NEGATIVE (NEGATIVE); PH,URINE 5.5 (5-9); PROTEIN,URINE TRACE (NEGATIVE)
[2020-11-05 05:13] LABS: BACTERIA,URINE NEGATIVE /HPF
[2020-11-05 05:18] LABS: AMPHETAMINE SCREEN, URINE POSITIVE (NEGATIVE); BARBITURATE SCREEN URINE NEGATIVE (NEGATIVE); BENZODIAZEPINES SCREEN URINE NEGATIVE (NEGATIVE); CANNABINOID SCREEN, URINE POSITIVE (NEGATIVE); COCAINE SCREEN URINE NEGATIVE (NEGATIVE); METHADONE STAT NEGATIVE (NEGATIVE); METHAMPHETAMINE SCREEN URINE S POSITIVE (NEGATIVE); OPIATE SCREEN URINE NEGATIVE (NEGATIVE); OXYCODONE STAT NEGATIVE (NEGATIVE); PROPOXYPHENE STAT NEGATIVE (NEGATIVE); TRICYCLIC ANTIDEPRESSANTS SCRE NEGATIVE (NEGATIVE)
[2020-11-05 05:18] LABS: TSH (THYROID ANALYZER) 1.57 UIU/ML (0.35-4.94)
--- NOTE | 2020-11-05 05:32 | Diagnostic Imaging Report ---
PROCEDURE: CT head without contrast. TECHNIQUE: Multiple contiguous axial images were obtained through the brain without the use of intravenous contrast. Auto Exposure Controls were utilized during the CT exam to meet ALARA standards for radiation dose reduction. INDICATION: Seizures The ventricles are normal in size, shape and position. There are no masses or hemorrhages. There are no extra-axial fluid collections. IMPRESSION: Negative CT head Dictated by: Dictated on workstation # [id number]
--- NOTE | 2020-11-05 05:36 | ED Neurological Problem ---
General Chief Complaint: Neurological Problems Stated Complaint: SEIZURE ACTIVITY Nursing Triage Note: PT ARRIVED VIA [facility] FOR SEIZURE ACTIVITY REPORTED BY SIGNIFICANT OTHER (S0). HE REPORTED 7-8 MINUTES OF GENERALIZED FULL BODY CONVULSIONS, FOLLOWED BY A COMATOSED STATE. UPON EMS ARRIVAL TO SCENE PT WAS A&OX4, GCS 15, NOT APPEARING IN A POST-ICTAL STATE. PT WAS ABLE TO AMBULATE TO COT WITHOUT INCIDENT. PT REPORTS STARTING A NEW MED, CEPHAZOLIN, FOR TOOTH PAIN RECENTLY BUT THAT IS THE ONLY RECENT CHANGE. PT DENIES ANY RECENT HEAD TRAUMA OR DRUG USE. PT HAS BGL OF 70. LAST KNOWN SEIZURE ACTIVITY WAS OVER 3 YEARS AGO WHILE IN [facility]. PT REPORTS BEING CLEAN FROM METH FOR 1 YR. Source: patient Exam Limitations: no limitations History of Present Illness Date Seen by Provider: Nov 05, 2020 Time Seen by Provider: 04:30 Initial Comments This 40-year-old woman presents to the emergency room via EMS after having a reported seizure at home. She was lying in bed watching TV when she developed generalized convulsions witnessed by her significant other. These reportedly lasted for 7 to 8 minutes. She has a laceration to her mid tongue with minimal bleeding. She denies any bowel or bladder incontinence. She does not remember the event. She reports 1 prior seizure while in care home about 3 years ago. She has had no formal neurologic work-up. She is not on any antiseizure medication. She recently started taking Keflex for dental pain. The Keflex belonged to her significant other. She also used one of her sisters Flexeril last night. She does not have a local doctor at this time. Patient admits to marijuana use but denies any other drug or alcohol use. She was ambulatory at the scene. Allergies and Home Medications Allergies Coded Allergies: NKANo Known Allergies (Verified Allergy, Mild, 06/19/19) cyclobenzaprine (Verified Adverse Reaction, Severe, Seizure, 11/05/20) Has had seizures twice while on cyclobenzaprine Patient Home Medication List Home Medication List Reviewed: Yes Amoxicillin (Amoxicillin) 500 Mg Capsule, 1,000 MG PO BID Prescribed by: BALWINDER COSTA on 11/05/20 06 Levetiracetam (Keppra) 500 Mg Tablet, 500 MG PO BID Prescribed by: BALWINDER COSTA on 11/05/20 0612 Lisinopril (Lisinopril) 10 Mg Tablet, 10 MG PO DAILY Prescribed by: BALWINDER COSTA on 01/24/20 230 Meloxicam (Mobic) 15 Mg Tablet, 15 MG PO DAILY Prescribed by: JACKIE KOROMA on 12/05/19 2313 Review of Systems Review of Systems Constitutional: no symptoms reported Eyes: No Symptoms Reported Ears, Nose, Mouth, Throat: see HPI Respiratory: no symptoms reported Cardiovascular: no symptoms reported Gastrointestinal: no symptoms reported Genitourinary: no symptoms reported : No Musculoskeletal: muscle pain Skin: no symptoms reported Psychiatric/Neurological: See HPI Endocrine: No Symptoms Reported Past Tnaesxp-Hpalpj-Eybnfz Hx Patient Social History Tobacco Use?: Yes Tobacco type used: Cigarettes Smoking Status: Current Everyday Smoker Substance use?: Yes Substance type: Marijuana Alcohol Use?: No Pt feels they are or have been: No Immunizations Up To Date Tetanus Booster (TDap): Unknown First/Initial COVID19 Vaccinat: NA Seasonal Allergies Seasonal Allergies: No Past Medical History Surgeries: Yes Orthopedic, Tubal Ligation Respiratory: No Cardiac: Yes Hypertension Neurological: Yes 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, Seizure Disorder (1 prior seizure) 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 oz. 54.301245uw; 22.00 BMI Method:Stated General Appearance: WD/WN, mild distress HEENT: PERRL/EOMI, other (Laceration on the mid tongue with slight oozing. 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, no motor/sensory deficits, alert, normal mood/affect, oriented x 3 Crainal Nerves: normal hearing, normal speech, PERRL Coordination/Gait: normal gait Motor/Sensory: no motor deficit, no sensory deficit Skin: normal color, warm/dry Progress/Results/Core Measures Results/Orders Lab Results Laboratory Tests Test 11/05/20 04:37 11/05/20 04:50 Range/Units White Blood Count 8.3 4.3-11.0 10^3/uL Red Blood Count 4.81 3.80-5.11 10^6/uL Hemoglobin 14.6 11.5-16.0 g/dL Hematocrit 45 35-52 % Mean Corpuscular Volume 93 80-99 fL Mean Corpuscular Hemoglobin 30 25-34 pg Mean Corpuscular Hemoglobin Concent 33 32-36 g/dL Red Cell Distribution Width 12.0 10.0-14.5 % Platelet Count 303 130-400 10^3/uL Mean Platelet Volume 9.1 9.0-12.2 fL Immature Granulocyte % (Auto) 0 % Neutrophils (%) (Auto) 63 42-75 % Lymphocytes (%) (Auto) 26 12-44 % Monocytes (%) (Auto) 9 0-12 % Eosinophils (%) (Auto) 1 0-10 % Basophils (%) (Auto) 1 0-10 % Neutrophils # (Auto) 5.2 1.8-7.8 10^3/uL Lymphocytes # (Auto) 2.2 1.0-4.0 10^3/uL Monocytes # (Auto) 0.7 0.0-1.0 10^3/uL Eosinophils # (Auto) 0.1 0.0-0.3 10^3/uL Basophils # (Auto) 0.1 0.0-0.1 10^3/uL Immature Granulocyte # (Auto) 0.0 0.0-0.1 10^3/uL Sodium Level 139 135-145 MMOL/L Potassium Level 3.8 3.6-5.0 MMOL/L Chloride Level 106 98-107 MMOL/L Carbon Dioxide Level 21 21-32 MMOL/L Anion Gap 12 5-14 MMOL/L Blood Urea Nitrogen 9 7-18 MG/DL Creatinine 0.80 0.60-1.30 MG/DL Estimat Glomerular Filtration Rate 80 BUN/Creatinine Ratio 11 Glucose Level 66 L 70-105 MG/DL Calcium Level 9.4 8.5-10.1 MG/DL Corrected Calcium 9.2 8.5-10.1 MG/DL Magnesium Level 1.9 1.6-2.4 MG/DL Total Bilirubin 0.4 0.1-1.0 MG/DL Aspartate Amino Transf (AST/SGOT) 14 5-34 U/L Alanine Aminotransferase (ALT/SGPT) 13 0-55 U/L Alkaline Phosphatase 58 40-136 U/L Total Protein 6.9 6.4-8.2 GM/DL Albumin 4.3 3.2-4.5 GM/DL TSH [place] Testing 1.57 0.35-4.94 UIU/ML Serum Test, Qualitative NEGATIVE NEGATIVE Serum Alcohol < 10 <10 MG/DL Urine Color YELLOW Urine Clarity CLEAR Urine pH 5.5 5-9 Urine Specific [place] 1.025 H 1.016-1.022 Urine Protein TRACE H NEGATIVE Urine Glucose (UA) NEGATIVE NEGATIVE Urine Ketones 1+ H NEGATIVE Urine Nitrite NEGATIVE NEGATIVE Urine Bilirubin NEGATIVE NEGATIVE Urine Urobilinogen 0.2 < = 1.0 MG/DL Urine Leukocyte Esterase NEGATIVE NEGATIVE Urine RBC (Auto) TRACE-I NEGATIVE Urine RBC NONE /HPF Urine WBC NONE /HPF Urine Squamous Epithelial Cells 2-5 /HPF Urine Crystals NONE /LPF Urine Bacteria NEGATIVE /HPF Urine Casts NONE /LPF Urine Mucus LARGE H /LPF Urine Culture Indicated NO Urine Opiates Screen NEGATIVE NEGATIVE Urine Oxycodone Screen NEGATIVE NEGATIVE Urine Methadone Screen NEGATIVE NEGATIVE Urine Propoxyphene Screen NEGATIVE NEGATIVE Urine Barbiturates Screen NEGATIVE NEGATIVE Ur Tricyclic Antidepressants Screen NEGATIVE NEGATIVE Urine Phencyclidine Screen NEGATIVE NEGATIVE Urine Amphetamines Screen POSITIVE H NEGATIVE Urine Methamphetamines Screen POSITIVE H NEGATIVE Urine Benzodiazepines Screen NEGATIVE NEGATIVE Urine Cocaine Screen NEGATIVE NEGATIVE Urine Cannabinoids Screen POSITIVE H NEGATIVE My Orders Orders - BALWINDER MADDOX MD Alcohol (11/05/20 04:42) Cbc With Automated Diff (11/05/20 04:42) Comprehensive Metabolic Panel (11/05/20 04:42) Drug Screen Stat (Urine) (11/05/20 04:42) Hcg,Qualitative Serum (11/05/20 04:42) Magnesium (11/05/20 04:42) Thyroid Analyzer (11/05/20 04:42) Ua Culture If Indicated (11/05/20 04:42) Ed Iv/Invasive Line Start (11/05/20 04:42) Ct Head Wo (11/05/20 04:42) Levetiracetam Tablet (Keppra Tablet) (11/05/20 06:00) Amoxicillin Capsule (Polymox Capsule) (11/05/20 05:51) Ketorolac Injection (Toradol Injection) (11/05/20 06:00) Medications Given in ED Current Medications Medications Dose Ordered Sig/Julissa Route Start Time Stop Time Status Last Admin Dose Admin Ketorolac Tromethamine 15 mg ONCE ONCE IVP 11/05/20 06:00 11/05/20 06:03 DC 11/05/20 06:09 15 MG Levetiracetam 500 mg ONCE ONCE PO 11/05/20 06:00 11/05/20 06:03 DC 11/05/20 06:10 500 MG Vital Signs/I&O 11/05/20 11/05/20 04:32 06:45 Temp 36.2 Pulse 100 91 Resp 24 16 B/P (MAP) 140/92 (108) 132/67 Pulse Ox 100 99 O2 Delivery Room Air Room Air Blood Pressure Mean: 108 Progress Progress Note : Progress Note In the course of conversation it was discovered that cyclobenzaprine use preceded both of her seizures. Seizure is listed as the top serious adverse effect of cyclobenzaprine in the [employer] drug index. Patient was advised to discontinue cyclobenzaprine use and it was added to her allergy list. We discussed risks and benefits of starting Keppra. She requested to be prescribed Keppra and the first dose was given in the ER. She was also given amoxicillin for her dental issues. Prescriptions were provided for both. Toradol was given for her muscle aches. She was advised to follow-up with her primary care provider soon as possible. Diagnostic Imaging Diagonstic Imaging: CT Plain Films/CT/US/NM/MRI: head Comments CT head viewed by me and report reviewed. See report below: NAME: RAFAEL MORALES MED REC#: [id number] PT STATUS: REG ER : 1980 PHYSICIAN: BALWINDER MADDOX MD ADMIT DATE: 11/05/20/ER Signed Date of Exam:11/05/20 CT HEAD WO PROCEDURE: CT head without contrast. TECHNIQUE: Multiple contiguous axial images were obtained through the brain without the use of intravenous contrast. Auto Exposure Controls were utilized during the CT exam to meet ALARA standards for radiation dose reduction. INDICATION: Seizures The ventricles are normal in size, shape and position. There are no masses or hemorrhages. There are no extra-axial fluid collections. IMPRESSION: Negative CT head Dictated by: Dictated on workstation # [id number] Dict: 11/05/20529 Trans: 11/05/20529 TCB [id number] Interpreted by: POWER LAINEZ MD Electronically signed by: POWER LAINEZ MD 11/05/20529 Departure Impression Primary Impression: Seizure Additional Impressions: Pain, dental Tongue laceration Qualified Codes: S01.512A - Laceration without foreign body of oral cavity, initial encounter Positive urine drug screen Disposition: HOME, SELF-CARE Condition: Improved Departure-Patient Inst. Decision time for Depature: 06:00 Referrals: [facility] (PCP/Family) Primary Care Physician Patient Instructions: Seizures Add. Discharge Instructions: Follow-up with a primary care provider soon as possible. Until then, continue with the Keppra antiseizure medication. Drink plenty of clear liquids to stay well-hydrated. This should help improve your muscle soreness. In the [facility] you may not drive a vehicle for at least 6 months after having had a seizure without medical clearance from a doctor. Complete your antibiotics as prescribed. Follow-up with a dentist as soon as possible. Avoid use of cyclobenzaprine in the future as this may be lowering your threshold for seizures. Avoid any mind altering substances such as alcohol, marijuana, etc. as these substances may increase risk for seizure. Call with questions or concerns, and return to the ER if you have worsening symptoms. All discharge instructions reviewed with patient and/or family. Voiced unde rstanding. Scripts Amoxicillin (Amoxicillin) 500 Mg Capsule 1000 MG PO BID, #40 CAP 0 Refills Prov: BALWINDER MADDOX MD 11/05/20 Levetiracetam (Keppra) 500 Mg Tablet 500 MG PO BID, #60 TAB Prov: BALWINDER MADDOX MD 11/05/20 BALWINDER MADDOX MD Nov 05, 2020 05:36
[2020-11-05] MEDS ORDERED: AMOXICILLIN 500 MG (POLYMOX) CAP PO STA (05:51)
[2020-11-05] MEDS ORDERED: KETOROLAC 30 MG/ML VIAL IVP ONE (06:00)
[2020-11-05] MEDS ORDERED: AMOX500C2 PO (06:12)
[2020-11-05] MEDS ORDERED: LEVE500T99 PO (06:12)
[2020-11-05 06:45] VITALS: BP 132/67
== END 2020-11-05 06:45 | disposition home or self-care (01) ==
LOC: EDUNIT# 04:26 → ER 04:30
DX: S01.512A Laceration without foreign body of oral cavity, initial encounter (principal); G40.909 Epilepsy, unspecified, not intractable, without status epilepticus; K08.89 Other specified disorders of teeth and supporting structures; R82.5 Elevated urine levels of drugs, medicaments and biological substances; I10 Essential (primary) hypertension; F17.210 Nicotine dependence, cigarettes, uncomplicated; Z79.899 Other long term (current) drug therapy; W19.XXXA Unspecified fall, initial encounter
CPT/HCPCS: 70450; 80053; 80306; 81000; 83735; 84443; 84703; 85025; 99284; G0480; 36415; 80320

== ENCOUNTER 2020-11-10 08:15 | Emergency (ER) | payer SELFPAY ==
[~2020-11-10] VITALS: Ht 158 cm; Wt 61.0 kg
[~2020-11-10 08:15] MED LIST changes: +AMOX500C2 PO; +LEVE500T99 PO
[2020-11-10 08:35] LABS: BASOPHILS # (AUTO) 0.1 10^3/uL (0.0-0.1); BASOPHILS % (AUTO) 1 % (0-10); EOSINOPHILS # (AUTO) 0.2 10^3/uL (0.0-0.3); EOSINOPHILS % (AUTO) 2 % (0-10); HEMATOCRIT 45 % (35-52); LYMPHOCYTES # (AUTO) 2.1 10^3/uL (1.0-4.0); LYMPHOCYTES % (AUTO) 22 % (12-44); MEAN CORPUSCULAR HEMOGLOBIN 31 pg (25-34); MEAN CORPUSCULAR HGB CONC 33 g/dL (32-36); MEAN CORPUSCULAR VOLUME 92 fL (80-99); MEAN PLATELET VOLUME 9.3 fL (9.0-12.2); MONOCYTES # (AUTO) 0.7 10^3/uL (0.0-1.0); MONOCYTES % (AUTO) 7 % (0-12); NEUTROPHILS # (AUTO) 6.4 10^3/uL (1.8-7.8); NEUTROPHILS % (AUTO) 68 % (42-75); PLATELET COUNT 288 10^3/uL (130-400); WHITE BLOOD COUNT 9.4 10^3/uL (4.3-11.0)
[2020-11-10 08:41] LABS: BILIRUBIN,URINE NEGATIVE (NEGATIVE); CLARITY,URINE CLEAR; COLOR,URINE YELLOW; GLUCOSE, URINE (UA) NEGATIVE (NEGATIVE); KETONES,URINE NEGATIVE (NEGATIVE); LEUKOCYTE ESTERASE ,URINE NEGATIVE (NEGATIVE); NITRITE,URINE NEGATIVE (NEGATIVE); PROTEIN,URINE NEGATIVE (NEGATIVE)
[2020-11-10 08:49] LABS: ALBUMIN 3.9 GM/DL (3.2-4.5); POTASSIUM 4.7 MMOL/L (3.6-5.0)
[2020-11-10 08:52] LABS: TOTAL PROTEIN 6.5 GM/DL (6.4-8.2)
[2020-11-10 08:54] LABS: BILIRUBIN,TOTAL 0.2 MG/DL (0.1-1.0)
[2020-11-10 08:56] LABS: CREATININE SERUM 0.71 MG/DL (0.60-1.30)
[2020-11-10 08:57] LABS: AMPHETAMINE SCREEN, URINE POSITIVE (NEGATIVE); BARBITURATE SCREEN URINE NEGATIVE (NEGATIVE); BENZODIAZEPINES SCREEN URINE NEGATIVE (NEGATIVE); CANNABINOID SCREEN, URINE POSITIVE (NEGATIVE); COCAINE SCREEN URINE NEGATIVE (NEGATIVE); METHADONE STAT NEGATIVE (NEGATIVE); METHAMPHETAMINE SCREEN URINE S POSITIVE (NEGATIVE); OPIATE SCREEN URINE POSITIVE (NEGATIVE); OXYCODONE STAT NEGATIVE (NEGATIVE); TRICYCLIC ANTIDEPRESSANTS SCRE NEGATIVE (NEGATIVE)
[2020-11-10 08:58] LABS: PROPOXYPHENE STAT NEGATIVE (NEGATIVE)
[2020-11-10 09:10] LABS: AMORPHOUS SEDIMENT,UR FEW AMOR URATES /LPF; BACTERIA,URINE TRACE /HPF; RBC,URINE RARE /HPF
--- NOTE | 2020-11-10 09:20 | ED Neurological Problem ---
General Chief Complaint: Neurological Problems Stated Complaint: SEIZURE Nursing Triage Note: Pt arrived to ED by EMS who reports pt had a seizure this morning. Pt was seen here four days ago following a seizure. When asked what pt remembers before and after seizure, pt states "I don't know. I don't remember." Pt is A&Ox4, no deficits noted. Source: patient, EMS, old records Exam Limitations: clinical condition History of Present Illness Date Seen by Provider: Nov 10, 2020 Time Seen by Provider: 08:17 Initial Comments This 40-year-old woman presents to the emergency room with report of a seizure as witnessed by her significant other. She was lying in bed when the seizure occurred and it lasted about 2 minutes per his report. EMS reports a post ictal patient upon their arrival with no seizure-like activity witnessed by EMS. She was seen here on November 05 for a similar complaint. At that time she had a laceration to her left tongue suggesting significant convulsion. Work-up was unremarkable except for a positive urine drug screen. Patient had reported 1 prior seizure while she was in [facility]. Both seizures were preceded by doses of cyclobenzaprine. Seizure activity was thought to be likely related to cyclobenzaprine use. However, patient states she has not used cyclobenzaprine since November 04. She admits to marijuana use but denies any other drug or alcohol use. She does seem a bit irritable and postictal upon arrival. She is alert and oriented except does not know the month. Vital signs are stable. No tongue trauma or bowel or bladder incontinence today. Patient has not picked up her prescriptions for amoxicillin (prescribed for dental pain) or Keppra prescribed for seizure prophylaxis. Fingerstick blood sugar was 91 per EMS. Allergies and Home Medications Allergies Coded Allergies: NKANo Known Allergies (Verified Allergy, Mild, 06/19/19) cyclobenzaprine (Verified Adverse Reaction, Severe, Seizure, 11/05/20) Has had seizures twice while on cyclobenzaprine Patient Home Medication List Home Medication List Reviewed: Yes Amoxicillin (Amoxicillin) 500 Mg Capsule, 1,000 MG PO BID Prescribed by: BALWINDER COSTA on 11/05/20 0612 Levetiracetam (Keppra) 500 Mg Tablet, 500 MG PO BID Prescribed by: BALWINDER COSTA on 11/05/20 0612 Lisinopril (Lisinopril) 10 Mg Tablet, 10 MG PO DAILY Prescribed by: BALWINDER COSTA on 01/24/20 2301 Meloxicam (Mobic) 15 Mg Tablet, 15 MG PO DAILY Prescribed by: JACKIE KOROMA on 12/05/19 2313 Review of Systems Review of Systems Constitutional: no symptoms reported Eyes: No Symptoms Reported Ears, Nose, Mouth, Throat: see HPI Respiratory: no symptoms reported Cardiovascular: no symptoms reported Gastrointestinal: no symptoms reported Genitourinary: no symptoms reported : No Musculoskeletal: no symptoms reported Skin: no symptoms reported Psychiatric/Neurological: See HPI Endocrine: No Symptoms Reported Hematologic/Lymphatic: No Symptoms Reported Past Bfcyife-Mzrqah-Ggzvkb Hx Patient Social History Tobacco Use?: Yes Tobacco type used: Cigarettes Smoking Status: Current Everyday Smoker Use of E-Cig and/or Vaping dev: No Substance use?: Yes Substance type: Marijuana Alcohol Use?: No Pt feels they are or have been: No Immunizations Up To Date Tetanus Booster (TDap): Unknown First/Initial COVID19 Vaccinat: NA Seasonal Allergies Seasonal Allergies: No Past Medical History Surgery/Hospitalization HX: Pt was seen and treated in ED for seizure activity four days ago Surgeries: Yes Orthopedic, Tubal Ligation Respiratory: No Cardiac: Yes Hypertension Neurological: Yes 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, Seizure Disorder 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 oz. 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 Appears postictal and mildly irritable) Crainal Nerves: normal hearing, normal speech, PERRL Motor/Sensory: no motor deficit, no sensory deficit Skin: normal color, warm/dry Progress/Results/Core Measures Results/Orders Lab Results Laboratory Tests Test 11/10/20 08:23 11/10/20 08:33 Range/Units White Blood Count 9.4 4.3-11.0 10^3/uL Red Blood Count 4.90 3.80-5.11 10^6/uL Hemoglobin 15.0 11.5-16.0 g/dL Hematocrit 45 35-52 % Mean Corpuscular Volume 92 80-99 fL Mean Corpuscular Hemoglobin 31 25-34 pg Mean Corpuscular Hemoglobin Concent 33 32-36 g/dL Red Cell Distribution Width 11.9 10.0-14.5 % Platelet Count 288 130-400 10^3/uL Mean Platelet Volume 9.3 9.0-12.2 fL Immature Granulocyte % (Auto) 1 % Neutrophils (%) (Auto) 68 42-75 % Lymphocytes (%) (Auto) 22 12-44 % Monocytes (%) (Auto) 7 0-12 % Eosinophils (%) (Auto) 2 0-10 % Basophils (%) (Auto) 1 0-10 % Neutrophils # (Auto) 6.4 1.8-7.8 10^3/uL Lymphocytes # (Auto) 2.1 1.0-4.0 10^3/uL Monocytes # (Auto) 0.7 0.0-1.0 10^3/uL Eosinophils # (Auto) 0.2 0.0-0.3 10^3/uL Basophils # (Auto) 0.1 0.0-0.1 10^3/uL Immature Granulocyte # (Auto) 0.1 0.0-0.1 10^3/uL Sodium Level 137 135-145 MMOL/L Potassium Level 4.7 3.6-5.0 MMOL/L Chloride Level 108 H 98-107 MMOL/L Carbon Dioxide Level 18 L 21-32 MMOL/L Anion Gap 11 5-14 MMOL/L Blood Urea Nitrogen 9 7-18 MG/DL Creatinine 0.71 0.60-1.30 MG/DL Estimat Glomerular Filtration Rate 92 BUN/Creatinine Ratio 13 Glucose Level 83 70-105 MG/DL Calcium Level 9.0 8.5-10.1 MG/DL Corrected Calcium 9.1 8.5-10.1 MG/DL Total Bilirubin 0.2 0.1-1.0 MG/DL Aspartate Amino Transf (AST/SGOT) 18 5-34 U/L Alanine Aminotransferase (ALT/SGPT) 15 0-55 U/L Alkaline Phosphatase 51 40-136 U/L Total Protein 6.5 6.4-8.2 GM/DL Albumin 3.9 3.2-4.5 GM/DL Serum Test, Qualitative NEGATIVE NEGATIVE Urine Color YELLOW Urine Clarity CLEAR Urine pH 6.0 5-9 Urine Specific [place] >=1.030 1.016-1.022 Urine Protein NEGATIVE NEGATIVE Urine Glucose (UA) NEGATIVE NEGATIVE Urine Ketones NEGATIVE NEGATIVE Urine Nitrite NEGATIVE NEGATIVE Urine Bilirubin NEGATIVE NEGATIVE Urine Urobilinogen 0.2 < = 1.0 MG/DL Urine Leukocyte Esterase NEGATIVE NEGATIVE Urine RBC (Auto) NEGATIVE NEGATIVE Urine RBC RARE /HPF Urine WBC NONE /HPF Urine Squamous Epithelial Cells 5-10 /HPF Urine Crystals PRESENT H /LPF Urine Amorphous Sediment FEW GAGE URATES H /LPF Urine Bacteria TRACE /HPF Urine Casts NONE /LPF Urine Mucus MODERATE H /LPF Urine Culture Indicated NO Urine Opiates Screen POSITIVE H NEGATIVE Urine Oxycodone Screen NEGATIVE NEGATIVE Urine Methadone Screen NEGATIVE NEGATIVE Urine Propoxyphene Screen NEGATIVE NEGATIVE Urine Barbiturates Screen NEGATIVE NEGATIVE Ur Tricyclic Antidepressants Screen NEGATIVE NEGATIVE Urine Phencyclidine Screen NEGATIVE NEGATIVE Urine Amphetamines Screen POSITIVE H NEGATIVE Urine Methamphetamines Screen POSITIVE H NEGATIVE Urine Benzodiazepines Screen NEGATIVE NEGATIVE Urine Cocaine Screen NEGATIVE NEGATIVE Urine Cannabinoids Screen POSITIVE H NEGATIVE My Orders Orders - BALWINDER MADDOX MD Drug Screen Stat (Urine) (11/10/20 08:27) Hcg,Qualitative Serum (11/10/20 08:27) Cbc With Automated Diff (11/10/20 08:27) Comprehensive Metabolic Panel (11/10/20 08:27) Ua Culture If Indicated (11/10/20 08:27) Ed Iv/Invasive Line Start (11/10/20 08:27) Levetiracetam Injection (Keppra Injectio (11/10/20 08:27) Vital Signs/I&O 11/10/20 08:22 Temp 36.4 Pulse 80 Resp 17 B/P (MAP) 137/48 (77) Pulse Ox 100 O2 Delivery Room Air Blood Pressure Mean: 77 Progress Progress Note : Time: 09:33 Progress Note Patient had an unremarkable CT of the head during her November [address] was not repeated. Work-up was relatively unremarkable today except for positive urine drug screen. Patient does admit to the marijuana and states "it will always be positive for marijuana". She denies any methamphetamine use. Discharge instructions were reviewed with the patient. [facility]ox[facility] for dental pain [facility] She was encouraged to fill those medications and pick them up today. She was also encouraged to follow-up at [facility] as soon as possible. She indicates that her significant other has scheduled her an appointment. See discharge instructions for further discussion. Patient does verbally consent to having a copy of this note sent to the [facility] clinic. Departure Impression Primary Impression: Seizure Additional Impressions: Polysubstance abuse Noncompliance with medication regimen Disposition: 01 HOME, SELF-CARE Condition: Improved Departure-Patient Inst. Decision time for Depature: :22 Referrals: [facility] (PCP/Family) Primary Care Physician Patient Instructions: Polysubstance Use Disorder, Seizures, Adult ED Add. Discharge Instructions: Follow-up at the [facility] as soon as possible. Please call today to make an appointment. In the meantime, please fill your Keppra and antibiotic and take as prescribed. [facility] also has substance abuse treatment resources. Please utilize these to help refrain from using illicit substances such as marijuana or methamphetamines. Drink plenty of clear liquids to stay well-hydrated. It is imperative that you refrain from the use of any mind altering substances including marijuana or marijuana derivatives, alcohol, methamphetamines, or any other illicit substance. Use of these substances can induce or worsen seizure disorder. By [place] State law you may not drive within 6 months of having a seizure unless otherwise medically cleared by physician. You may not drive any motor vehicle during that time. Please also avoid any activity that could predispose you to significant injury should you have another seizure. Such activities might inc lude bicycle riding, swimming, use of heights such as ladders, etc. Call with questions or concerns. Return to the ER if you have worsening symptoms. All discharge instructions reviewed with patient and/or family. Voiced understanding. Copy Copies To 1: CAESAR RECINOS MD, JOSHUA T MD Nov 10, 2020 09:20
[2020-11-10 09:36] VITALS: BP 119/36
== END 2020-11-10 09:30 | disposition home or self-care (01) ==
LOC: EDUNIT# 08:15 → ER 08:17
DX: G40.909 Epilepsy, unspecified, not intractable, without status epilepticus (principal); F15.10 Other stimulant abuse, uncomplicated; F12.10 Cannabis abuse, uncomplicated; F11.10 Opioid abuse, uncomplicated; I10 Essential (primary) hypertension; F17.210 Nicotine dependence, cigarettes, uncomplicated; Z91.19 Patient's noncompliance with other medical treatment and regimen; Z79.899 Other long term (current) drug therapy
CPT/HCPCS: 36415; 80053; 80306; 81000; 84703; 85025

== ENCOUNTER 2021-01-11 07:19 | Emergency (ER) | payer SELFPAY ==
[~2021-01-11] VITALS: Ht 157 cm; Wt 49.8 kg
--- NOTE | 2021-01-11 07:31 | ED Neurological Problem ---
General Chief Complaint: Neurological Problems Stated Complaint: SEIZURES Source: patient, EMS Exam Limitations: no limitations History of Present Illness Date Seen by Provider: Jan 11, 2021 Time Seen by Provider: 07:18 Initial Comments Patient is a 40-year-old female who presents to the emergency department by EMS after reported seizure this morning. Patient reports that her woke up to her having a "seizure". She is not sure how long it lasted. She states she was "scared" after the seizure ended. She denies injuring herself, her neck, back, shoulders or biting her tongue. She states she had a seizure about 3 weeks ago, she was supposed to be taking some medications but discontinued it because of side effects. She has not followed up with a primary care physician since that visit. She denies any recent illnesses such as fevers, chills, cough or congestion. She is not Covid vaccinated. No recent nausea, vomiting diarrhea or urinary complaints. She states she had her tubes tied about 17 years ago. She is not on daily medications. She endorses cigarette use, 1 pack daily; states that she uses marijuana. Denies any other illicit substances. Does not drink alcohol. All other review of systems reviewed and negative except as stated. Patient's later presented for further history. States that she seemed to "seize" off and on for about 30 minutes. He states that she shook all over but ultimately was just poorly responsive with stiffened extremities. He did show me a video of her with labored breathing and appearing to be poorly responsive. He told me that he feels like it has been about 3 days since she has used methamphetamine. Timing/Duration: 1 hour Associated Symptoms: confusion Allergies and Home Medications Allergies Coded Allergies: cyclobenzaprine (Verified Adverse Reaction, Severe, Seizure, 11/05/20) Has had seizures twice while on cyclobenzaprine Patient Home Medication List Home Medication List Reviewed: Yes Amoxicillin (Amoxicillin) 500 Mg Capsule, 1,000 MG PO BID Prescribed by: BALWINDER COSTA on 11/05/20611 Levetiracetam (Keppra) 500 Mg Tablet, 500 MG PO BID Prescribed by: BALWINDER COSTA on 11/05/2012 Lisinopril (Lisinopril) 10 Mg Tablet, 10 MG PO DAILY Prescribed by: BALWINDER COSTA on 01/24/20 2301 Meloxicam (Mobic) 15 Mg Tablet, 15 MG PO DAILY Prescribed by: JACKIE KOROMA on 12/05/19 2313 Review of Systems Review of Systems Constitutional: see HPI Eyes: No Symptoms Reported Ears, Nose, Mouth, Throat: no symptoms reported Respiratory: no symptoms reported Cardiovascular: no symptoms reported Gastrointestinal: no symptoms reported Genitourinary: no symptoms reported : No Musculoskeletal: no symptoms reported Skin: no symptoms reported Psychiatric/Neurological: Other ("seizure") All Other Systems Reviewed Negative Unless Noted: Yes Past Shodizj-Wzfzph-Mqmxjd Hx Immunizations Up To Date Tetanus Booster (TDap): Unknown First/Initial COVID19 Vaccinat: NA Seasonal Allergies Seasonal Allergies: No Past Medical History Surgery/Hospitalization HX: Pt was seen and treated in ED for seizure activity four days ago Surgeries: Yes Orthopedic, Tubal Ligation Respiratory: No Cardiac: Yes Hypertension Neurological: Yes 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, 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 oz. 54.248666nr; 24.00 BMI Method:Stated General Appearance: WD/WN, no apparent distress HEENT: PERRL/EOMI, normal ENT inspection, TMs normal, pharynx normal Neck: non-tender, full range of motion, supple, normal inspection Respiratory: lungs clear, normal breath sounds, no respiratory distress, no accessory muscle use Cardiovascular: regular rate, rhythm (ZF=736) Gastrointestinal: normal bowel sounds, non tender, soft Back: normal inspection, no vertebral tenderness Extremities: normal range of motion, normal inspection Neurologic/Psychiatric: comber fixer II-XII nml as tested, no motor/sensory deficits, alert, normal mood/affect, oriented x 3 Crainal Nerves: normal hearing, normal speech, PERRL Coordination/Gait: normal gait Motor/Sensory: no motor deficit, no sensory deficit Skin: normal color, warm/dry Progress/Results/Core Measures Results/Orders Lab Results Laboratory Tests Test 01/11/21 07:28 01/11/21 07:47 01/11/21 07:51 Range/Units Glucometer 84 70-110 MG/DL White Blood Count 8.7 4.3-11.0 10^3/uL Red Blood Count 4.98 3.80-5.11 10^6/uL Hemoglobin 15.5 11.5-16.0 g/dL Hematocrit 46 35-52 % Mean Corpuscular Volume 92 80-99 fL Mean Corpuscular Hemoglobin 31 25-34 pg Mean Corpuscular Hemoglobin Concent 34 32-36 g/dL Red Cell Distribution Width 11.9 10.0-14.5 % Platelet Count 294 130-400 10^3/uL Mean Platelet Volume 9.1 9.0-12.2 fL Immature Granulocyte % (Auto) 0 % Neutrophils (%) (Auto) 63 42-75 % Lymphocytes (%) (Auto) 26 12-44 % Monocytes (%) (Auto) 9 0-12 % Eosinophils (%) (Auto) 1 0-10 % Basophils (%) (Auto) 1 0-10 % Neutrophils # (Auto) 5.4 1.8-7.8 10^3/uL Lymphocytes # (Auto) 2.3 1.0-4.0 10^3/uL Monocytes # (Auto) 0.8 0.0-1.0 10^3/uL Eosinophils # (Auto) 0.1 0.0-0.3 10^3/uL Basophils # (Auto) 0.1 0.0-0.1 10^3/uL Immature Granulocyte # (Auto) 0.0 0.0-0.1 10^3/uL Percent Immature Platelet Fraction 1.9 0.0-7.6 % Sodium Level 136 135-145 MMOL/L Potassium Level 3.9 3.6-5.0 MMOL/L Chloride Level 104 98-107 MMOL/L Carbon Dioxide Level 22 21-32 MMOL/L Anion Gap 10 5-14 MMOL/L Blood Urea Nitrogen 9 7-18 MG/DL Creatinine 0.77 0.60-1.30 MG/DL Estimat Glomerular Filtration Rate 83 BUN/Creatinine Ratio 12 Glucose Level 93 70-105 MG/DL Calcium Level 9.4 8.5-10.1 MG/DL Corrected Calcium 9.0 8.5-10.1 MG/DL Total Bilirubin 0.5 0.1-1.0 MG/DL Aspartate Amino Transf (AST/SGOT) 19 5-34 U/L Alanine Aminotransferase (ALT/SGPT) 16 0-55 U/L Alkaline Phosphatase 53 40-136 U/L Total Protein 7.2 6.4-8.2 GM/DL Albumin 4.5 3.2-4.5 GM/DL Serum Test, Qualitative NEGATIVE NEGATIVE Urine Opiates Screen NEGATIVE NEGATIVE Urine Oxycodone Screen NEGATIVE NEGATIVE Urine Methadone Screen NEGATIVE NEGATIVE Urine Propoxyphene Screen NEGATIVE NEGATIVE Urine Barbiturates Screen NEGATIVE NEGATIVE Ur Tricyclic Antidepressants Screen NEGATIVE NEGATIVE Urine Phencyclidine Screen NEGATIVE NEGATIVE Urine Amphetamines Screen POSITIVE H NEGATIVE Urine Methamphetamines Screen POSITIVE H NEGATIVE Urine Benzodiazepines Screen NEGATIVE NEGATIVE Urine Cocaine Screen NEGATIVE NEGATIVE Urine Cannabinoids Screen POSITIVE H NEGATIVE My Orders Orders - BRIDGETT ASTORGA MD Accucheck Stat ONCE (01/11/21 07:27) Comprehensive Metabolic Panel (01/11/21 07:36) Cbc With Automated Diff (01/11/21 07:36) Hcg,Qualitative Serum (01/11/21 07:36) Drug Screen Stat (Urine) (01/11/21 07:48) Vital Signs/I&O 01/11/21 07:20 Temp 36.4 Pulse 112 Resp 20 B/P (MAP) 139/103 (115) Pulse Ox 99 Progress Progress Note : Time: 08:33 Progress Note Patient's labs reviewed, CBC and chemistry and test are all within normal limits/negative. She was positive for marijuana and methamphetamine on urine drug screen. I did consent the patient to discuss all of these results/findings with her and her who is present at the bedside. I did inform her of the positive meth in her urine drug screen. Her was very upset and offered some support to her however the patient adamantly declined that she had been using at all. He suspected that she used about 3 days ago and that might be the cause of her seizure. He is requesting some medications for seizures to prevent this from happening again. The patient tried Keppra already as an outpatient and failed. I recommended close follow-up with [facility] regarding further seizure medications as Keppra is the only medicine I feel comfortable starting from the ED. I recommended no bathing with the door locked, no climbing ladders and no driving. Offered the patient [facility] services as well but again she denied that she has been using. Her vital signs show hypertension with a diastolic at 112. Patient is currently not taking her lisinopril. She is also tachycardic in the 110s. She is quite agitated and upset secondary to arguing with her in the room. I have given her return precautions. She verbalized understanding. All questions are sought and answered. Departure Impression Primary Impression: Seizure Additional Impressions: High blood pressure Qualified Codes: I10 - Essential (primary) hypertension Methamphetamine abuse Disposition: HOME, SELF-CARE Condition: Stable Departure-Patient Inst. Decision time for Depature: 08:36 Referrals: [facility] (PCP/Family) Primary Care Physician Patient Instructions: Seizures, Adult ED, High Blood Pressure in Adults Add. Discharge Instructions: You should call [facility] in the morning for a follow-up appointment regarding your blood pressure and further treatment of seizures. This is your third seizure in 3 months. You likely need to be on some long-term medications. [facility] services can also help you with drug counseling. Avoid bathing with a locked door, climbing ladders and driving for 6 months until your seizures are under control. Return to the emergency department for any new, concerning or emergent complaints. Copy Copies To 1: SY DAWN KATHRYN M MD Jan 11, 2021 07:31
[2021-01-11 07:54] LABS: HEMATOCRIT 46 % (35-52); HEMOGLOBIN 15.5 g/dL (11.5-16.0); MEAN CORPUSCULAR HEMOGLOBIN 31 pg (25-34); MEAN CORPUSCULAR HGB CONC 34 g/dL (32-36)
[2021-01-11 07:55] LABS: BASOPHILS # (AUTO) 0.1 10^3/uL (0.0-0.1); BASOPHILS % (AUTO) 1 % (0-10); EOSINOPHILS # (AUTO) 0.1 10^3/uL (0.0-0.3); EOSINOPHILS % (AUTO) 1 % (0-10); LYMPHOCYTES # (AUTO) 2.3 10^3/uL (1.0-4.0); LYMPHOCYTES % (AUTO) 26 % (12-44); MEAN CORPUSCULAR VOLUME 92 fL (80-99); MEAN PLATELET VOLUME 9.1 fL (9.0-12.2); MONOCYTES # (AUTO) 0.8 10^3/uL (0.0-1.0); MONOCYTES % (AUTO) 9 % (0-12); NEUTROPHILS # (AUTO) 5.4 10^3/uL (1.8-7.8); NEUTROPHILS % (AUTO) 63 % (42-75); PLATELET COUNT 294 10^3/uL (130-400); WHITE BLOOD COUNT 8.7 10^3/uL (4.3-11.0)
[2021-01-11 08:04] LABS: ALBUMIN 4.5 GM/DL (3.2-4.5)
[2021-01-11 08:05] LABS: POTASSIUM 3.9 MMOL/L (3.6-5.0)
[2021-01-11 08:06] LABS: CALCIUM 9.4 MG/DL (8.5-10.1)
[2021-01-11 08:07] LABS: TOTAL PROTEIN 7.2 GM/DL (6.4-8.2)
[2021-01-11 08:09] LABS: AMPHETAMINE SCREEN, URINE POSITIVE (NEGATIVE); BARBITURATE SCREEN URINE NEGATIVE (NEGATIVE); BENZODIAZEPINES SCREEN URINE NEGATIVE (NEGATIVE); CANNABINOID SCREEN, URINE POSITIVE (NEGATIVE); COCAINE SCREEN URINE NEGATIVE (NEGATIVE); METHADONE STAT NEGATIVE (NEGATIVE); METHAMPHETAMINE SCREEN URINE S POSITIVE (NEGATIVE); OPIATE SCREEN URINE NEGATIVE (NEGATIVE); TRICYCLIC ANTIDEPRESSANTS SCRE NEGATIVE (NEGATIVE)
[2021-01-11 08:09] LABS: BILIRUBIN,TOTAL 0.5 MG/DL (0.1-1.0)
[2021-01-11 08:10] LABS: OXYCODONE STAT NEGATIVE (NEGATIVE); PROPOXYPHENE STAT NEGATIVE (NEGATIVE)
[2021-01-11 08:11] LABS: CREATININE SERUM 0.77 MG/DL (0.60-1.30)
[2021-01-11 08:42] VITALS: BP 141/94
== END 2021-01-11 08:42 | disposition home or self-care (01) ==
LOC: EDUNIT# 07:19 → ER 07:22
DX: G40.909 Epilepsy, unspecified, not intractable, without status epilepticus (principal); I10 Essential (primary) hypertension; F15.10 Other stimulant abuse, uncomplicated; Z79.899 Other long term (current) drug therapy
CPT/HCPCS: 36415; 80053; 80306; 82947; 84703; 85025

== ENCOUNTER 2021-02-01 03:02 | Emergency (ER) | payer SELFPAY ==
[~2021-02-01] VITALS: Ht 157 cm; Wt 58.0 kg
[2021-02-01 03:02] VITALS: BP 163/88
== END 2021-02-01 03:22 | disposition left against medical advice (07) ==
LOC: EDUNIT# 03:02 → ER 03:05
DX: F15.93 Other stimulant use, unspecified with withdrawal (principal)
CPT/HCPCS: 87636; 99283

== ENCOUNTER 2021-03-20 11:54 | Emergency (ER) | payer SELFPAY ==
[~2021-03-20] VITALS: Ht 158 cm; Wt 63.0 kg
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
[2021-03-20] MEDS ORDERED: LORazepam INJ 2 MG/ML (ATIVAN) VIAL IVP ONE (12:15)
[2021-03-20] MEDS ORDERED: NS IV 1000 ML 1,000 ML IV SCH (12:30)
[2021-03-20 12:44] LABS: BASOPHILS # (AUTO) 0.1 10^3/uL (0.0-0.1); BASOPHILS % (AUTO) 0 % (0-10); EOSINOPHILS % (AUTO) 0 % (0-10); HEMATOCRIT 45 % (35-52); HEMOGLOBIN 14.9 g/dL (11.5-16.0); LYMPHOCYTES # (AUTO) 1.1 10^3/uL (1.0-4.0); LYMPHOCYTES % (AUTO) 9 % (12-44); MEAN CORPUSCULAR HEMOGLOBIN 31 pg (25-34); MEAN CORPUSCULAR HGB CONC 33 g/dL (32-36); MEAN CORPUSCULAR VOLUME 93 fL (80-99); MEAN PLATELET VOLUME 9.3 fL (9.0-12.2); MONOCYTES # (AUTO) 0.6 10^3/uL (0.0-1.0); MONOCYTES % (AUTO) 5 % (0-12); NEUTROPHILS % (AUTO) 84 % (42-75); PLATELET COUNT 317 10^3/uL (130-400); WHITE BLOOD COUNT 11.9 10^3/uL (4.3-11.0)
[2021-03-20 12:57] LABS: ALBUMIN 4.3 GM/DL (3.2-4.5); POTASSIUM 4.4 MMOL/L (3.6-5.0)
[2021-03-20 12:58] LABS: CALCIUM 9.1 MG/DL (8.5-10.1)
[2021-03-20 12:59] LABS: TOTAL PROTEIN 6.9 GM/DL (6.4-8.2)
[2021-03-20 13:01] LABS: BILIRUBIN,TOTAL 0.3 MG/DL (0.1-1.0)
[2021-03-20 13:03] LABS: CREATININE SERUM 0.8 MG/DL (0.60-1.30)
[2021-03-20 13:56] VITALS: BP 101/56
== END 2021-03-20 13:57 | disposition home or self-care (01) ==
LOC: EDUNIT# 11:54 → ER 11:58
DX: S01.512A Laceration without foreign body of oral cavity, initial encounter (principal); G40.909 Epilepsy, unspecified, not intractable, without status epilepticus; I10 Essential (primary) hypertension; Z79.899 Other long term (current) drug therapy; X58.XXXA Exposure to other specified factors, initial encounter
CPT/HCPCS: 36415; 80053; 85025; 86141; 93005

== ENCOUNTER → 2021-04-09 | Outpatient (CLI) | payer SELFPAY | LOC: LAB 14:56 | PROVIDERS: ATTEND Family Medicine | DX: R56.9 Unspecified convulsions (principal) | CPT/HCPCS: 36415; 80185 ==

== ENCOUNTER 2021-07-29 20:18 | Emergency (ER) | payer SELFPAY ==
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
[2021-07-29] MEDS ORDERED: NAPR-915 PO (20:54)
[2021-07-29 21:00] VITALS: BP 136/80
== END 2021-07-29 21:03 | disposition home or self-care (01) ==
LOC: EDUNIT# 20:18 → ER 20:20
DX: M79.605 Pain in left leg (principal); M25.472 Effusion, left ankle; V20.5XXA Motorcycle passenger injured in collision with pedestrian or animal in traffic accident, initial encounter
CPT/HCPCS: 73590; 73610

== ENCOUNTER → 2021-10-21 | Outpatient (CLI) | payer SELFPAY ==
[~2021-10-21] MED LIST changes: +NAPR-915 PO
== END ==
LOC: LAB 11:20
PROVIDERS: ATTEND Family Medicine
DX: R56.9 Unspecified convulsions (principal)
CPT/HCPCS: 36415; 80185